=== PATIENT | female | born 1945 | race Hispanic/Latino ===

== ENCOUNTER 2017-07-14 14:07 | Inpatient (IN) | payer MEDICARE, BC ==
--- NOTE | 2017-07-14 14:23 | ED PDOC ---
Arrival/HPI - General Time Seen by Provider: 07/14/17 14:08 Historian: Patient - History of Present Illness Narrative History of Present Illness (Text): 07/14/17 14:16 A 72 year old female whose past medical history includes hypertension, presents to the emergency department for hypertension and chest pressure. The patient states that she was in the endoscopy suite when they noticed that her blood pressure had elevated. The patient was brought into the emergency department for further evaluation. She also notes that she is experiencing a mild headache. The patient denies fevers, chills, dizziness, sore throat, cough, shortness of breath, dyspnea on exertion, abdominal pain, nausea, vomiting, diarrhea, neck pain, back pain, urinary/bowel changes, or any other complaints. Time/Duration: Prior to Arrival Symptom Onset: Sudden Symptom Course: Unchanged Activities at Onset: Rest, Light Context: Other (Endoscopy Suite) Past Medical History - Provider Review Nursing Documentation Reviewed: Yes - Cardiac Hx Pacemaker: No - Pulmonary Hx Respiratory Disorders: Yes (SMOKED CIGARETTES H/O 2 PPD QUIT) - Neurological Hx Paralysis: No - HEENT Hx HEENT Disorder: No (WEARS RX GLASSES) - Renal Hx Renal Disorder: No - Endocrine/Metabolic Hx Endocrine Disorders: Yes Hx Hypothyroidism: Yes - Hematological/Oncological Hx Blood Transfusions: Yes Hx Blood Transfusion Reaction: No - Integumentary Hx Dermatological Disorder: Yes (MULTIPLE BRUISING FROM BLOOD THINNERS) - Musculoskeletal/Rheumatological Hx Musculoskeletal Disorders: Yes - Gastrointestinal Hx Gastrointestinal Disorders: Yes (GI BLEED 16) - Genitourinary/Gynecological Hx Genitourinary Disorders: No - Psychiatric Hx Emotional Abuse: No Hx Physical Abuse: No Hx Substance Use: No - Surgical History Hx Coronary Stent: Yes (2 stents) - Anesthesia Hx Anesthesia Reactions: No Hx Malignant Hyperthermia: No - Suicidal Assessment Feels Threatened In Home Enviroment: No Family/Social History - Physician Review Nursing Documentation Reviewed: Yes Family/Social History: No Known Family HX Smoking Status: Former Smoker Hx Alcohol Use: No Hx Substance Use: No Allergies/Home Meds Allergies/Adverse Reactions: Allergies acetaminophen [From Tylenol] Allergy (Intermediate, Verified 07/14/17 14:17) RASH Home Medications: Home Meds Medication Instructions Recorded Confirmed Levothyroxine Sodium 75 mcg PO DAILY 10/01/13 07/14/17 Metoprolol Tartrate [Lopressor] 100 mg PO DAILY 02/25/16 07/14/17 Losartan [Cozaar] 50 mg PO DAILY 03/31/17 07/14/17 Gabapentin [Neurontin] 300 mg PO TID 07/14/17 07/14/17 Zolpidem Tartrate [Ambien] 10 mg PO HS PRN 07/14/17 07/14/17 Review of Systems - Physician Review All systems were reviewed & negative as marked: Yes - Review of Systems Constitutional: absent: Fevers, Night Sweats Respiratory: absent: SOB, Cough Cardiovascular: absent: Chest Pain, MADRIGAL Gastrointestinal: absent: Abdominal Pain, Stool Changes, Diarrhea, Nausea, Vomiting Genitourinary Female: absent: Urine Output Changes Musculoskeletal: absent: Back Pain, Neck Pain Neurological: absent: Headache, Dizziness Physical Exam Vital Signs Reviewed: Yes Vital Signs Temp Pulse Pulse Resp BP BP Pulse Ox 07/14/17 17:32 72 189/96 H 07/14/17 17:17 72 17 189/96 H 98 07/14/17 16:10 79 16 181/98 H 98 07/14/17 14:20 73 196/90 H 07/14/17 14:12 97.6 F 80 14 97 Temperature: Afebrile Blood Pressure: Normal Pulse: Regular Respiratory Rate: Normal Appearance: Positive for: Well-Appearing, Non-Toxic, Comfortable Pain Distress: None Mental Status: Positive for: Alert and Oriented X 3 - Systems Exam Head: Present: Atraumatic, Normocephalic Pupils: Present: PERRL Extroacular Muscles: Present: EOMI Conjunctiva: Present: Normal Mouth: Present: Moist Mucous Membranes Neck: Present: Normal Range of Motion Respiratory/Chest: Present: Clear to Auscultation, Good Air Exchange. No: Respiratory Distress, Accessory Muscle Use Cardiovascular: Present: Regular Rate and Rhythm, Normal S1, S2. No: Murmurs Abdomen: Present: Normal Bowel Sounds. No: Tenderness, Distention, Peritoneal Signs Back: Present: Normal Inspection Upper Extremity: Present: Normal Inspection. No: Cyanosis, Edema Lower Extremity: Present: Normal Inspection. No: Edema Neurological: Present: GCS=15, CN II-XII Intact, Speech Normal Skin: Present: Warm, Dry, Normal Color. No: Rashes Psychiatric: Present: Alert, Oriented x 3, Normal Insight, Normal Concentration Medical Decision Making ED Course and Treatment: 07/14/17 14:23 Impression: A 72 year old female presents for further evaluation for high blood pressure, chest pressure, and headache. Plan: -- Head CT -- EKG -- Chest X-ray -- Labs -- Urinalysis -- Reassess and disposition Prior Visits: Notes and results from previous visits were reviewed. On 05/03/2017. She was treated for left knee pain. The patient was discharged home on Ultram. Progress Notes: EKG: Ordered, reviewed, and independently interpreted the EKG. Rate : 71 BPM Rhythm : NSR Interpretation : Non- specific ST/T wave changes. 07/14/17 16:09: Case discussed with Dr. Pablo. 07/14/17 17:[address] rapp bedside - Lab Interpretations Lab Results: 07/14/17 14:50 07/14/17 14:50 Lab Results 07/14/17 14:50: Sodium 144, Potassium 3.6, Chloride 102, Carbon Dioxide 32, Anion Gap 14, BUN 15, Creatinine 0.5 L, Est GFR ( Amer) > 60, Est GFR ( Non-Af Amer) > 60, Random Glucose 129 H, Calcium 8.9, Magnesium 1.6 L, Total Bilirubin 1.1, AST 55 H, ALT 62 H, Alkaline Phosphatase 59, Lactate Dehydrogenase 569, Total Creatine Kinase 99, Troponin I < 0.01 D, Total Protein 7.8, Albumin 3.9, Globulin 3.9, Albumin/Globulin Ratio 1.0 L 07/14/17 14:50: PT 11.2, INR 1.04, APTT 23.6 L 07/14/17 14:50: WBC 7.5, RBC 4.59, Hgb 14.4, Hct 43.2, MCV 94.1, MCH 31.4, MCHC 33.3, RDW 13.4, Plt Count 95 L, MPV 12.2 H, Gran % 83.9 H, Lymph % (Auto) 9.3 L , Hutchinson % (Auto) 6.8 H, Eos % (Auto) 0.0 L, Baso % (Auto) 0.0, Gran # 6.31, Lymph # 0.7 L, Hutchinson # 0.5, Eos # 0.0, Baso # 0.00 I have reviewed the lab results: Yes - RAD Interpretation Radiology Orders: 07/14/17 14:14 CHEST PORTABLE [RAD] Stat 07/14/17 14:29 HEAD W/O CONTRAST [CT] Stat - EKG Interpretation Interpreted by ED Physician: Yes Type: 12 lead EKG - Medication Orders Current Medication Orders: Gabapentin (Neurontin) 300 mg PO TID KARL PRN Reason: Protocol Hydralazine HCl (Apresoline) 10 mg IVP STAT KARL Last Admin: 07/14/17 17:32 Dose: 10 mg IVP Administration Document 07/14/17 17:32 MR (Rec: 07/14/17 17:32 [id number]) Charges for Administration # of IVP Administrations 1 DEC Pulse and Blood Pressure Document 07/14/17 17:32 MR (Rec: 07/14/17 17:32 MR [id number]) Pulse Pulse Rate (60-90) 72 Blood Pressure Blood Pressure (100/60-150/90) 189/96 Levothyroxine Sodium (Synthroid) 75 mcg PO ACB KARL Losartan Potassium (Cozaar) 50 mg PO DAILY K[facility] Magnesium Oxide (Mag-Ox) 400 mg PO BID K[facility] Metoprolol Tartrate (Lopressor) 50 mg PO BID K[facility] Pantoprazole Sodium (Protonix Ec Tab) 40 mg PO DAILY [facility] Sucralfate (Carafate Tab) 1 gm PO BID K[facility] Tramadol HCl (Ultram) 50 mg PO TID KAR[facility] Zolpidem Tartrate (Ambien) 5 mg PO HS PRN PRN Reason: Insomnia Discontinued Medications Aspirin (Aspirin) 325 mg PO STAT STA Stop: 07/14/17 16:11 Last Admin: 07/14/17 17:11 Dose: 325 mg - Scribe Statement The provider has reviewed the documentation as recorded by the Lizabeth Galvan Provider Scribe Attestation: All medical record entries made by the Lizabeth were at my direction and personally dictated by me. I have reviewed the chart and agree that the record accurately reflects my personal performance of the history, physical exam, medical decision making, and the department course for this patient. I have also personally directed, reviewed, and agree with the discharge instructions and disposition. Disposition/Present on Arrival - Present on Arrival Any Indicators Present on Arrival: No History of DVT/PE: No History of Uncontrolled Diabetes: No Urinary Catheter: No History Surgical Site Infection Following: None - Disposition Have Diagnosis and Disposition been Completed?: Yes Diagnosis: Chest pain Disposition: HOSPITALIZED Disposition Time: 05:00 Patient Problems: Current Active Problems Problem Status Onset Chest pain Acute Condition: STABLE
[2017-07-14 15:07] LABS: GRAN # 6.31 (1.4-6.5); GRAN % 83.9 % (50.0-68.0); HEMATOCRIT 43.2 % (36.0-48.0); LYMPH # 0.7 (1.2-3.4); LYMPH % 9.3 % (22.0-35.0); MEAN CELL VOLUME 94.1 fl (80.0-105.0); MEAN CORPUSCULAR HEMOGLOBIN 31.4 pg (25.0-35.0); MEAN CORPUSCULAR HGB CONC 33.3 g/dl (31.0-37.0); MEAN PLATELET VOLUME 12.2 fl (7.0-11.0); MONO # 0.5 (0.1-0.6); MONO % 6.8 % (1.0-6.0); RED CELL DISTRIBUTION WIDTH 13.4 % (11.5-14.5); WHITE BLOOD COUNT 7.5 10^3/ul (4.5-11.0)
[2017-07-14 15:13] LABS: ALKALINE PHOSPHATASE 59 U/L (38-126); ALT/SGPT 62 U/L (7-56); AST/SGOT 55 U/L (14-36); BILIRUBIN,TOTAL 1.1 mg/dL (0.2-1.3); BLOOD UREA NITROGEN 15 mg/dL (7-21); CALCIUM 8.9 mg/dL (8.4-10.5); CARBON DIOXIDE 32 mmol/L (21-33); CHLORIDE 102 mmol/L (98-107); GFR AFRICAN-AMERICAN > 60; GLUCOSE,RANDOM 129 mg/dL (70-110); MAGNESIUM 1.6 mg/dL (1.7-2.2); POTASSIUM 3.6 mmol/L (3.6-5.0); SODIUM 144 mmol/L (132-148); TOTAL PROTEIN 7.8 g/dL (5.8-8.3)
[2017-07-14 15:14] LABS: INR 1.04 (0.93-1.08); PARTIAL THROMBOPLASTIN TIME 23.6 Seconds (23.7-30.8)
[2017-07-14 15:28] LABS: TROPONIN I < 0.01 ng/mL
[2017-07-14] MEDS: Magnesium Oxide 400 mg Tab UD PO SCH (18:45)
--- NOTE | 2017-07-14 18:57 | CP.PCM.PN ---
<SairaNancy - Last Filed: 07/14/17 19:17> Subjective - Date & Time of Evaluation Date of Evaluation: 07/14/17 Time of Evaluation: 18:52 - Subjective Subjective: Paged by nurse, patient c/o left sided chest pain. Patient initially presented to [place] for endoscopy, was found to be hypertensive, and had episode of left sided chest pressure. TEXTILE DESIGNER was called, patient was transferred to the ER, had ekg with NSR, LVH, and non specific ST/T wave changes. Patient is currently admitted to [facility], and states the chest pain is persistent. The chest pain is reproducible and non radiating. Patient states it feels like her "acid reflux". Patient denies sob, nausea or vomiting. Patient appears comfortable, and is eating her dinner. Objective - Vital Signs/Intake and Output Vital Signs (last 24 hours): Temp Pulse Resp BP Pulse Ox 97.6 F 76 17 189/85 H 98 07/14/17 14:12 07/14/17 18:44 07/14/17 17:17 07/14/17 18:44 07/14/17 17:17 - Medications Medications: Current Medications Gabapentin (Neurontin) 300 mg PO TID [facility] PRN Reason: Protocol Last Admin: 07/14/17 18:43 Dose: 300 mg Hydralazine HCl (Apresoline) 10 mg IVP STAT [facility] Last Admin: 07/14/17 17:32 Dose: 10 mg Hydralazine HCl (Apresoline) 10 mg PO QID PRN PRN Reason: for sb>170 Levothyroxine Sodium (Synthroid) 75 mcg PO ACB [facility] Losartan Potassium (Cozaar) 100 mg PO DAILY [facility] Magnesium Oxide (Mag-Ox) 400 mg PO BID [facility] Last Admin: 07/14/17 18:45 Dose: 400 mg Metoprolol Tartrate (Lopressor) 50 mg PO BID [facility] Last Admin: 07/14/17 18:44 Dose: 50 mg Pantoprazole Sodium (Protonix Ec Tab) 40 mg PO DAILY [facility] Sucralfate (Carafate Tab) 1 gm PO BID [facility] Last Admin: 07/14/17 18:45 Dose: 1 gm Tramadol HCl (Ultram) 50 mg PO TID [facility] Last Admin: 07/14/17 18:45 Dose: 50 mg Zolpidem Tartrate (Ambien) 5 mg PO HS PRN PRN Reason: Insomnia - Labs Labs: PT 11.2 Seconds (9.9-11.8) 07/14/17 14:50 INR 1.04 (0.93-1.08) 07/14/17 14:50 APTT 23.6 Seconds (23.7-30.8) L 07/14/17 14:50 - Constitutional Appears: No Acute Distress - Head Exam Head Exam: ATRAUMATIC, NORMAL INSPECTION, NORMOCEPHALIC - Eye Exam Eye Exam: Normal appearance - ENT Exam ENT Exam: Mucous Membranes Moist - Neck Exam Neck Exam: Normal Inspection - Respiratory Exam Respiratory Exam: Clear to Ausculation Bilateral, NORMAL BREATHING PATTERN. absent: Rales, Rhonchi, Wheezes, Respiratory Distress, Stridor - Cardiovascular Exam Cardiovascular Exam: REGULAR RHYTHM, +S1, +S2. absent: Bradycardia, Tachycardia , Irregular Rhythm, Murmur - GI/Abdominal Exam GI & Abdominal Exam: Soft, Normal Bowel Sounds. absent: Tenderness - Neurological Exam Neurological Exam: Alert, Awake, Oriented x3 - Psychiatric Exam Psychiatric exam: Normal Affect, Normal Mood - Skin Skin Exam: Dry, Intact, Warm Assessment and Plan - Assessment and Plan (Free Text) Assessment: Patient is a 72 y/o with pmh of CAD s/p 2 stents, htn admitted with htn urgency and chest pain. Patient had a repeat ekg, which is NSR@71 BPM, non specific ST/ T wave changes, LVH, unchanged from prior EKG. Plan: - Labs reviewed, patient had normal troponin and cpk @1450, and ekg is unchanged , no ST/T wave elevations. - Patient had ultram ordered by primary, will give the ultram for now. - Discussed with patient's primary Dr Burgos, recommended Product Test Specialist, Dr Fuller be contacted. - Paged Dr Fuller's service, awaiting response. - Discuss with Dr Casey. <Effie Casey - Last Filed: 07/14/17 21:17> Objective - Vital Signs/Intake and Output Vital Signs (last 24 hours): Temp Pulse Resp BP Pulse Ox 98.4 F 62 20 181/77 H 98 07/14/17 19:00 07/14/17 20:49 07/14/17 19:00 07/14/17 20:49 07/14/17 17:17 - Medications Medications: Current Medications Gabapentin (Neurontin) 300 mg PO TID KARL PRN Reason: Protocol Last Admin: 07/14/17 18:43 Dose: 300 mg Hydralazine HCl (Apresoline) 10 mg IVP STAT [facility] Last Admin: 07/14/17 17:32 Dose: 10 mg Hydralazine HCl (Apresoline) 10 mg PO QID PRN PRN Reason: for sb>170 Last Admin: 07/14/17 20:49 Dose: 10 mg Levothyroxine Sodium (Synthroid) 75 mcg PO ACB KARL Losartan Potassium (Cozaar) 100 mg PO DAILY [facility] Magnesium Oxide (Mag-Ox) 400 mg PO BID [facility] Last Admin: 07/14/17 18:45 Dose: 400 mg Metoprolol Tartrate (Lopressor) 50 mg PO BID [facility] Last Admin: 07/14/17 18:44 Dose: 50 mg Pantoprazole Sodium (Protonix Ec Tab) 40 mg PO DAILY [facility] Sucralfate (Carafate Tab) 1 gm PO BID [facility] Last Admin: 07/14/17 18:45 Dose: 1 gm Tramadol HCl (Ultram) 50 mg PO TID [facility] Last Admin: 07/14/17 18:45 Dose: 50 mg Zolpidem Tartrate (Ambien) 5 mg PO HS PRN PRN Reason: Insomnia - Labs Labs: PT 11.2 Seconds (9.9-11.8) 07/14/17 14:50 INR 1.04 (0.93-1.08) 07/14/17 14:50 APTT 23.6 Seconds (23.7-30.8) L 07/14/17 14:50 Attending/Attestation - Attestation I have personally seen and examined this patient.: Yes I have fully participated in the care of the patient.: Yes I have reviewed all pertinent clinical information, including history, physical exam and plan: Yes Notes (Text): 07/14/17 21:17 Agree with progress note.
[2017-07-14 19:12] VITALS: BMI 26.0
[2017-07-14] MEDS ORDERED: Pneumococcal 23-Valent Vaccine IM ONE (19:13)
--- NOTE | 2017-07-14 20:01 | RAD ---
HISTORY: cp COMPARISON: 01/11/2016 FINDINGS: LUNGS: No active pulmonary disease. PLEURA: No significant pleural effusion identified, no pneumothorax apparent. CARDIOVASCULAR: Normal. OSSEOUS STRUCTURES: No significant abnormalities. VISUALIZED UPPER ABDOMEN: Normal. OTHER FINDINGS: None. IMPRESSION: No active disease.
--- NOTE | 2017-07-14 20:01 | CT ---
PROCEDURE: CT HEAD WITHOUT CONTRAST. HISTORY: maosn COMPARISON: None available. TECHNIQUE: Axial computed tomography images were obtained through the head/brain without intravenous contrast. Radiation dose: Total exam DLP = 678 mGy-cm. This CT exam was performed using one or more of the following dose reduction techniques: Automated exposure control, adjustment of the mA and/or kV according to patient size, and/or use of iterative reconstruction technique. FINDINGS: HEMORRHAGE: No intracranial hemorrhage. BRAIN: No mass effect or edema. No atrophy or chronic microvascular ischemic changes. VENTRICLES: Unremarkable. No hydrocephalus. CALVARIUM: Unremarkable. PARANASAL SINUSES: Unremarkable as visualized. No significant inflammatory changes. MASTOID AIR CELLS: Unremarkable as visualized. No inflammatory changes. OTHER FINDINGS: None. IMPRESSION: No acute findings
[2017-07-14 21:13] LABS: TROPONIN I 0.02 ng/mL
--- NOTE | 2017-07-14 22:03 | CARD ---
APPROVED REPORT EKG Measurement Heart [id number] <Conclusion> Normal sinus rhythm Voltage criteria for left ventricular hypertrophy ST abnormality, possible digitalis effect Abnormal ECG
--- NOTE | 2017-07-15 05:30 | CON ---
DATE: 07/14/2017 REASON FOR THE CONSULTATION: Chest pain and uncontrolled hypertension. BRIEF CLINICAL HISTORY: This is a 72-year-old female with past medical history significant for hypertension, gastroesophageal reflux disease, and is scheduled for endoscopy today. While the patient was in endoscopy suite, blood pressure was found to be 220. The patient is in the ER. The patient at that time experienced some chest discomfort. Cardiac consult was called. The patient denies any episode of chest pain prior to that or shortness of breath prior to that but the patient experienced some shortness of breath as well as blood pressure of the patient went 220. At that time, the blood pressure was 238/106. PAST MEDICAL HISTORY: Significant for hypertension, hyperlipidemia, history of coronary artery disease status post PTCA and history of PTCA on 10/01/2013. Last catheterization, the patient admitted with chest pain, abnormal stress test. Repeat catheterization on 07/03/2014 showed a nonobstructive coronary artery disease, patent stent in RCA, proximal stent in RCA, 50% stenosis in the mid to distal RCA, ejection fraction 18 to 20%. Medical treatment recommended. SOCIAL HISTORY: Denies smoking. Denies any history of alcohol abuse. Cardiology workup as follows: The patient had an echocardiography on 02/27/2016 showed normal chamber size, ejection fraction 55%, mild MR, mild AR, trace TR; dated ; history of last stress test on 06/19/2014, overly abnormal myocardial perfusion study, ejection fraction 76%, reversible ischemia. The patient had a last catheterization done on 10/01/2013 that was one vessel critical disease involving RCA, successful PTCA of RCA was done mild and a stent with CAMELIA was deployed on 10/01/2013. Repeat cardiac catheterization was done because of abnormal stress test in 07/02/2017 that showed nonobstructive coronary artery disease, patent stent in RCA dated 07/02/2017 following the stress test done on 06/19/2014. The cardiac catheter was done dated 07/02/2014. ALLERGIES: NO KNOWN DRUG ALLERGIES. PAST SURGICAL HISTORY: Significant for right shoulder surgery and fell down and since then the patient having leg pain. CURRENT MEDICATIONS: The patient at home was taking metoprolol 100 mg, tramadol 50, sucralfate 1 gm, losartan 50, levothyroxine, gabapentin and Ambien. REVIEW OF SYSTEMS: As per HPI. PHYSICAL EXAMINATION: As follows: VITAL SIGNS: Temperature afebrile, heart rate 72 and blood pressure 189/96. HEENT: PERRLA intact. NECK: Supple. No carotid bruit. No thyromegaly. CHEST: Clear to auscultation. HEART: S1 and S2 regular. ABDOMEN: Soft. EXTREMITIES: Clubbing and cyanosis negative. LABORATORY DATA: Blood workup as follows; WBC is 7.5, hemoglobin 14.2, hematocrit 43.2 and platelet count 95. Chemistry shows sodium 140, potassium 3.0, chloride 102, carbon dioxide 32, anion gap of 14, BUN 15 and creatinine 0.5. Troponin 0.01 negative. EKG shows normal sinus, no acute ST-T changes noted. IMPRESSION: Uncontrolled hypertension, probably this chest pain secondary to uncontrolled hypertension, history of stent in 2012, followup stress test abnormal in 2013, repeat cardiac catheterization on 07/02/2014, patent stent. RECOMMENDATION: We will get lipid profile, TSH, hemoglobin A1c. Followup serial CPK, troponin. CPK, troponin remains negative. We will do the stress test on Monday. Thank you Dr. Burgos for providing me the opportunity in taking care of the patient, Sakina Mckeon. Christy Fuller MD
[2017-07-15 07:38] LABS: BASO # 0.01 K/mm3 (0.0-2.0); BASO % 0.2 % (0.0-3.0); EOS % 0.2 % (1.5-5.0); GRAN # 3.04 (1.4-6.5); GRAN % 65.5 % (50.0-68.0); HEMATOCRIT 43.6 % (36.0-48.0); LYMPH # 1.2 (1.2-3.4); MEAN CELL VOLUME 96.2 fl (80.0-105.0); MEAN CORPUSCULAR HEMOGLOBIN 31.3 pg (25.0-35.0); MEAN CORPUSCULAR HGB CONC 32.6 g/dl (31.0-37.0); MEAN PLATELET VOLUME 12.5 fl (7.0-11.0); MONO # 0.4 (0.1-0.6); MONO % 9.1 % (1.0-6.0); RED CELL DISTRIBUTION WIDTH 13.8 % (11.5-14.5); WHITE BLOOD COUNT 4.6 10^3/ul (4.5-11.0)
[2017-07-15 07:50] LABS: ALKALINE PHOSPHATASE 49 U/L (38-126); ALT/SGPT 57 U/L (7-56); AST/SGOT 50 U/L (14-36); BLOOD UREA NITROGEN 14 mg/dL (7-21); CALCIUM 8.9 mg/dL (8.4-10.5); CARBON DIOXIDE 39 mmol/L (21-33); CHLORIDE 100 mmol/L (98-107); CHOLESTEROL 149 mg/dL (130-200); GFR AFRICAN-AMERICAN > 60; GLUCOSE,RANDOM 88 mg/dL (70-110); MAGNESIUM 1.8 mg/dL (1.7-2.2); PHOSPHOROUS 4.2 mg/dL (2.5-4.5); POTASSIUM 4.6 mmol/L (3.6-5.0); SODIUM 145 mmol/L (132-148)
[2017-07-15] MEDS: Levothyroxine 75 MCG TAB PO SCH (08:00)
[2017-07-15 08:01] LABS: TROPONIN I 0.03 ng/mL
--- NOTE | 2017-07-15 08:49 | PN ---
DATE: SUBJECTIVE: The patient is in [facility] in [place]. The patient is seen this morning. She was admitted last night with accelerated hypertension, chest pain, and headache. The patient is seen this morning, she still complains of discomfort in the chest, pain in the head, and feeling restless. She did not sleep all night. She is comfortably lying down without any shortness of breath. PHYSICAL EXAMINATION: VITAL SIGNS: The patient's pulse is 59, respirations are 20, blood pressure 163/76 much improved compared to yesterday's numbers. The patient's saturations is 99% of oxygen in room air. HEENT: Examination of the head is normocephalic. There is no evidence of any injuries in the head noted. NECK: The thyroid is not enlarged. Carotid pulses are present. LUNGS: Trachea is central. Breath sounds are vesicular. No adventitious sounds are heard. HEART: Normal sinus rhythm. S1 and S2 present. Sinus bradycardia. ABDOMEN: Soft. Liver and spleen are not palpable. CENTRAL NERVOUS SYSTEM: The patient has no focal deficits. Labs, she has had a CAT scan done through the emergency room yesterday without any results of negative findings. The patient's condition seemed to be clinically stable. The patient is not comfortable and still has symptoms. Cardiac evaluation would be done today on followup by Dr. Fuller. We will have the neurologist also take a look at the patient while she is in the hospital because of the headache. Today, the patient's hemoglobin is 14.2. The patient's platelet count is 88,000. She does have history of chronic liver disease from hepatitis C. The patient's chemistry are essentially normal, liver enzymes are minimally elevated secondary to hepatitis C. The patient's BUN is 14 and creatinine 8.5. We will continue current management and control medications for blood pressure and for also coronary artery disease. The patient will be seen by the customs brokerage manager and we will continue further management and evaluation. Brigitte Burgos MD ARMANDO
[2017-07-15] MEDS ORDERED: Levothyroxine 88 MCG TAB PO SCH (10:00)
[2017-07-15] MEDS: Magnesium Oxide 400 mg Tab UD PO SCH ×2 (10:09→17:52)
[2017-07-15] MEDS: Pantoprazole 40 mg EC Tab PO SCH (10:10)
--- NOTE | 2017-07-15 15:23 | PN ---
SUBJECTIVE: The patient denies any chest pain. She does report gas discomfort in her abdomen as well as constipation. PHYSICAL EXAMINATION: VITAL SIGNS: Blood pressure 184/97, heart rate 66, temperature 98.1, respirations 18. HEENT: Normocephalic. NECK: No JVD. CHEST: Clear. HEART: S1 and S2 regular. EXTREMITIES: No edema. LABORATORY DATA: Hemoglobin and hematocrit 14.2 and 43.6, white count 4.6, platelet count is below normal at 88,000. SMA-7 is within normal limits except for a carbon dioxide of 39 and creatinine of 0.5. Three sets of troponins are not in elevated range. TSH level is within normal limit. Today's EKG revealed sinus rhythm, LVH by voltage. ASSESSMENT: 1. Uncontrolled hypertension. 2. History of coronary stenting in 2012. 3. Abdominal discomfort as well as constipation. RECOMMENDATIONS: Continue Cozaar 100 mg once a day, Lopressor 50 mg twice a day, continue Fioricet at 1 tablet q. 4 hours p.r.n., Synthroid at 75 mcg once a day, start hydrochlorothiazide at 12.5 mg orally daily. Taran Godoy MD
[2017-07-15] MEDS ORDERED: Magnesium Citrate Oral SOL (300 ml) PO ONE (17:07)
[2017-07-15] MEDS: Apap-Butalbital-Caffeine 325-50-40mg Tab PO PRN (17:55)
--- NOTE | 2017-07-15 22:58 | CARD ---
APPROVED REPORT EKG Measurement Heart [id number] <Conclusion> Normal sinus rhythm Minimal voltage criteria for LVH, may be normal variant Nonspecific T wave abnormality Abnormal ECG
--- NOTE | 2017-07-15 23:10 | CARD ---
APPROVED REPORT EKG Measurement Heart [id number] <Conclusion> Normal sinus rhythm Minimal voltage criteria for LVH, may be normal variant Nonspecific T wave abnormality Abnormal ECG
[2017-07-16] MEDS: Levothyroxine 75 MCG TAB PO SCH (08:40)
[2017-07-16] MEDS: Pantoprazole 40 mg EC Tab PO SCH (10:36)
[2017-07-16] MEDS: Magnesium Oxide 400 mg Tab UD PO SCH ×2 (10:36→17:47)
--- NOTE | 2017-07-16 15:43 | PN ---
SUBJECTIVE: The patient did vomit once this morning, and she did have a bowel movement. She started experiencing what she describes as gas abdominal pain. No resistant chest pain. PHYSICAL EXAMINATION: VITAL SIGNS: Blood pressure 168/77, heart rate 99, temperature 97.3. An EKG yesterday revealed normal sinus rhythm, minimal voltage criteria for LVH with nonspecific T-wave changes. ASSESSMENT: 1. Hypertension, which is currently better controlled. 2. Abdominal pain and vomiting. 3. History of coronary artery disease, status post stenting in 2012. RECOMMENDATIONS: Continue current hydralazine 10 mg q.i.d., Cozaar 100 mg once a day, Lopressor 50 mg twice a day, hydrochlorothiazide 12.5 mg daily, Synthroid at 75 mcg daily as well as p.r.n. IV Zofran. I would review the echocardiograph study that was performed yesterday. Taran Godoy MD
--- NOTE | 2017-07-16 17:06 | CON ---
DATE: 07/16/2017 HISTORY OF PRESENT ILLNESS: This patient was seen and evaluated earlier. This is a 72-year-old patient with a past medical history of cirrhosis secondary to the hep C; coronary artery disease, status post EPIC CUPID ANALYST, initially presented to the endoscopy unit on 07/14/2017 for endoscopy evaluation. At that time, her pressure was found to have been high. The patient also was complaining of chest pain, the procedure was canceled; subsequently, the patient was sent to the emergency room and admitted for further evaluation. The patient has a history of gastric ulcer. The endoscopy was scheduled for evaluating the gastric ulcer. The patient also gave a history of significant weight loss. OTHER PAST MEDICAL HISTORY: Significant as above. History of chronic hepatitis C, cirrhosis, history of hypertension, dyslipidemia, status post PCI, stent placement. The patient has a history of hypothyroidism and neuropathy. SOCIAL HISTORY: Denies smoking, alcohol. ALLERGIES: NO KNOWN DRUG ALLERGY. SURGICAL HISTORY: Significant for right shoulder surgery. REVIEW OF SYSTEMS: Positive as above, other systems reviewed. PHYSICAL EXAMINATION: GENERAL: The patient is lying on the bed, not in acute distress. VITAL SIGNS: Temperature is 97.3, pulse 99, blood pressure 168/77, respirations 20. HEENT: Atraumatic, anicteric. NECK: Supple. HEART: S1 and S2 heard. LUNGS: Bilateral air entry present. ABDOMEN: Soft. There is no mass palpable. No tenderness. EXTREMITIES: No edema. No cyanosis. NEUROLOGIC: Alert, oriented. RECTAL: Examination was done, we saw some pink mucousy stool present. IMPRESSION: This is a 72-year-old patient, initially presented to the same-day surgery unit for evaluation for gastric ulcer healing, history of weight loss, subsequently found to have a high blood pressure and atypical chest pain. Subsequently, transferred to the ER; from there, he was admitted for further evaluation. The patient did have further constipation, had suppositories, had a bowel movement; had some blood in the stool. GI consult was requested to evaluate the rectal bleeding. No history of vomiting blood. No melena. Rectal examination revealed pink mucousy stool. The differential diagnosis for this bright red blood should include hemorrhoids, diverticulosis and also, rectal varices also to be considered. Upper GI etiology also to be considered, but less likely in view of the stable hemoglobin. Review of the labs showed the hemoglobin is stable at 14.4 yesterday and today is 14.2, stable. The patient's chemistry is also unremarkable except mildly elevated transaminase, AST of 50 and ALT of 57. RECOMMENDATIONS: 1. We will change the patient on clear liquid diet. 2. Continue to closely follow up her hemoglobin and hematocrit. 3. If there is any active bleeding, we will consider a bleeding scan. The patient is presently on pantoprazole, we will continue that and also, on sucralfate twice a day, we will continue that. Thank you very much for allowing us to participate in the care of the patient. Rebecca Woodard MD
--- NOTE | 2017-07-17 06:02 | CP.PCM.PN ---
Subjective - Date & Time of Evaluation Date of Evaluation: 07/17/17 Time of Evaluation: 06:02 - Subjective Subjective: Seen for short run of SVT. She is Asymptomatic. Denies chest pain, sob, nausea, sweating, palpitations. Medical record was reviewed.\ EKG:S tach. No acute ST T changes. This 72 year old woman was admitted from endoscopy for elevation of BP, discomfort of left side of forehead and flushing of left side of face. Has PMH of HTN,hypothyroidism, osteoarthritis, neuromuscular pain, hepatitis C , gastritis , GERD, actute LA, GI bleeding, CAD. Objective - Vital Signs/Intake and Output Vital Signs (last 24 hours): Temp Pulse Resp BP Pulse Ox 98.4 F 104 H 20 112/59 L 94 L 07/17/17 05:21 07/17/17 05:21 07/17/17 05:21 07/17/17 05:21 07/17/17 05:21 Intake and Output: 07/16/17 07/17/17 18:59 06:59 Intake Total 360 Balance 360 - Medications Medications: Current Medications Acetaminophen/Butalbital/Caffeine (Fioricet) 1 tab PO Q4H PRN PRN Reason: Headache Last Admin: 07/15/17 17:55 Dose: 1 tab Gabapentin (Neurontin) 300 mg PO TID [facility] PRN Reason: Protocol Last Admin: 07/16/17 17:47 Dose: 300 mg Hydralazine HCl (Apresoline) 10 mg PO QID PRN PRN Reason: for sb>170 Last Admin: 07/15/17 22:05 Dose: 10 mg Hydrochlorothiazide (Microzide) 12.5 mg PO DAILY [facility] Last Admin: 07/16/17 10:36 Dose: 12.5 mg Levothyroxine Sodium (Synthroid) 75 mcg PO ACB [facility] Last Admin: 07/16/17 08:40 Dose: 75 mcg Losartan Potassium (Cozaar) 100 mg PO DAILY [facility] Last Admin: 07/16/17 10:36 Dose: 100 mg Magnesium Oxide (Mag-Ox) 400 mg PO BID [facility] Last Admin: 07/16/17 17:47 Dose: 400 mg Metoprolol Tartrate (Lopressor) 50 mg PO BID [facility] Last Admin: 07/16/17 17:45 Dose: 50 mg Ondansetron HCl (Zofran Inj) 4 mg IVP Q4H PRN PRN Reason: Nausea/Vomiting Last Admin: 07/16/17 19:04 Dose: 4 mg Pantoprazole Sodium (Protonix Ec Tab) 40 mg PO DAILY [facility] Last Admin: 07/16/17 10:36 Dose: 40 mg Sucralfate (Carafate Tab) 1 gm PO BID [facility] Last Admin: 07/16/17 17:45 Dose: 1 gm Tramadol HCl (Ultram) 50 mg PO TID [facility] Last Admin: 07/16/17 17:48 Dose: 50 mg Zolpidem Tartrate (Ambien) 5 mg PO HS PRN PRN Reason: Insomnia Last Admin: 07/16/17 22:55 Dose: 5 mg - Labs Labs: PT 11.2 Seconds (9.9-11.8) 07/14/17 14:50 INR 1.04 (0.93-1.08) 07/14/17 14:50 APTT 23.6 Seconds (23.7-30.8) L 07/14/17 14:50 - Constitutional Appears: Well, No Acute Distress - Head Exam Head Exam: ATRAUMATIC, NORMAL INSPECTION, NORMOCEPHALIC - Eye Exam Eye Exam: Normal appearance - ENT Exam ENT Exam: Normal External Ear Exam - Neck Exam Neck Exam: Normal Inspection - Respiratory Exam Respiratory Exam: Prolonged Expiratory Phase - Cardiovascular Exam Cardiovascular Exam: absent: JVD - GI/Abdominal Exam GI & Abdominal Exam: absent: Distended - Rectal Exam Rectal Exam: Deferred - Exam Additional comments: Deferred. - Back Exam Additional comments: Deferred. - Neurological Exam Neurological Exam: Alert, Oriented x3 - Psychiatric Exam Psychiatric exam: Normal Affect, Normal Mood - Skin Skin Exam: Normal Color Assessment and Plan - Assessment and Plan (Free Text) Assessment: SVT. HTN. CAD. Osteoarthritis. Hypothyroidism. GERD. Gastritis. Plan: Troponin. CMP,Mag,Phos levels. EKG---->Sinus tachycardia, no acute ST T changes present. Continue present management . Observation.
[2017-07-17 06:52] LABS: BASO # 0.01 K/mm3 (0.0-2.0); BASO % 0.2 % (0.0-3.0); EOS % 0.6 % (1.5-5.0); GRAN # 3.19 (1.4-6.5); GRAN % 64.6 % (50.0-68.0); HEMATOCRIT 44.8 % (36.0-48.0); LYMPH # 1.1 (1.2-3.4); LYMPH % 23.1 % (22.0-35.0); MEAN CELL VOLUME 95.1 fl (80.0-105.0); MEAN CORPUSCULAR HEMOGLOBIN 31.4 pg (25.0-35.0); MEAN PLATELET VOLUME 11.3 fl (7.0-11.0); MONO # 0.6 (0.1-0.6); MONO % 11.5 % (1.0-6.0); RED CELL DISTRIBUTION WIDTH 13.5 % (11.5-14.5); WHITE BLOOD COUNT 4.9 10^3/ul (4.5-11.0)
[2017-07-17 07:01] LABS: BLOOD UREA NITROGEN 15 mg/dL (7-21); CALCIUM 8.3 mg/dL (8.4-10.5); CARBON DIOXIDE 38 mmol/L (21-33); CHLORIDE 94 mmol/L (98-107); GFR AFRICAN-AMERICAN > 60; GLUCOSE,RANDOM 88 mg/dL (70-110); POTASSIUM 3.8 mmol/L (3.6-5.0); SODIUM 139 mmol/L (132-148)
[2017-07-17 07:48] LABS: MAGNESIUM 1.9 mg/dL (1.7-2.2); PHOSPHOROUS 5.1 mg/dL (2.5-4.5)
[2017-07-17] MEDS: Levothyroxine 75 MCG TAB PO SCH (07:57)
--- NOTE | 2017-07-17 08:00 | CP.PCM.PN ---
Subjective - Date & Time of Evaluation Date of Evaluation: 07/16/17 Time of Evaluation: 08:05 - Subjective Subjective: Patient seen this morning. She is complaining of constipation. She had citrate of magnesia yesterday and was trying to go to the bathroom today, but says that nothing comes out. c/o bleeding from rectum. Objective - Vital Signs/Intake and Output Vital Signs (last 24 hours): Temp Pulse Resp BP Pulse Ox 98.2 F 64 18 168/67 H 97 07/16/17 06:00 07/16/17 06:00 07/16/17 06:00 07/16/17 06:00 07/16/17 06:00 Intake and Output: 07/16/17 07/16/17 06:59 18:59 Intake Total 660 Output Total 6 Balance 654 - Medications Medications: Current Medications Acetaminophen/Butalbital/Caffeine (Fioricet) 1 tab PO Q4H PRN PRN Reason: Headache Last Admin: 07/15/17 17:55 Dose: 1 tab Gabapentin (Neurontin) 300 mg PO TID [facility] PRN Reason: Protocol Last Admin: 07/15/17 17:46 Dose: Not Given Hydralazine HCl (Apresoline) 10 mg PO QID PRN PRN Reason: for sb>170 Last Admin: 07/15/17 22:05 Dose: 10 mg Hydrochlorothiazide (Microzide) 12.5 mg PO DAILY [facility] Last Admin: 07/15/17 16:04 Dose: 12.5 mg Levothyroxine Sodium (Synthroid) 75 mcg PO ACB [facility] Last Admin: 07/15/17 08:00 Dose: 75 mcg Losartan Potassium (Cozaar) 100 mg PO DAILY [facility] Last Admin: 07/15/17 10:10 Dose: 100 mg Magnesium Oxide (Mag-Ox) 400 mg PO BID [facility] Last Admin: 07/15/17 17:52 Dose: 400 mg Metoprolol Tartrate (Lopressor) 50 mg PO BID [facility] Last Admin: 07/15/17 17:52 Dose: 50 mg Pantoprazole Sodium (Protonix Ec Tab) 40 mg PO DAILY [facility] Last Admin: 07/15/17 10:10 Dose: 40 mg Sucralfate (Carafate Tab) 1 gm PO BID [facility] Last Admin: 07/15/17 17:52 Dose: 1 gm Tramadol HCl (Ultram) 50 mg PO TID [facility] Last Admin: 07/15/17 17:51 Dose: Not Given Zolpidem Tartrate (Ambien) 5 mg PO HS PRN PRN Reason: Insomnia Last Admin: 07/15/17 22:05 Dose: 5 mg - Labs Labs: PT 11.2 Seconds (9.9-11.8) 07/14/17 14:50 INR 1.04 (0.93-1.08) 07/14/17 14:50 APTT 23.6 Seconds (23.7-30.8) L 07/14/17 14:50 - Constitutional Appears: No Acute Distress - Head Exam Head Exam: ATRAUMATIC, NORMOCEPHALIC - Respiratory Exam Respiratory Exam: Clear to Ausculation Bilateral, NORMAL BREATHING PATTERN - Cardiovascular Exam Cardiovascular Exam: +S1, +S2 - GI/Abdominal Exam GI & Abdominal Exam: Soft, Normal Bowel Sounds. absent: Tenderness - Extremities Exam Extremities Exam: Normal Inspection - Neurological Exam Neurological Exam: Alert, Awake, Oriented x3 Assessment and Plan - Assessment and Plan (Free Text) Assessment: Uncontrolled HTN chest pain Constipation possible rectal bleeding Hepatitis C Plan: Patient is complaining of constipation and possible rectal bleeding - maybe due to hemmorhoids. Will consult Dr. Woodard. Will order dulcolax suppository and tap water enema. continue Metoprolol, and Cozaar for blood pressure with Hydralazine as needed. Echocardiogram done yesterday. Report pending.
--- NOTE | 2017-07-17 08:07 | CP.PCM.PN ---
Subjective - Date & Time of Evaluation Date of Evaluation: 07/17/17 Time of Evaluation: 07:45 - Subjective Subjective: Patient is seen this morning. She had a short run of SVT early this morning. She says that she feels chest pressure from time to time. Denies shortness of breath. Objective - Vital Signs/Intake and Output Vital Signs (last 24 hours): Temp Pulse Resp BP Pulse Ox 98.1 F 98 H 19 118/65 96 07/17/17 06:00 07/17/17 06:00 07/17/17 06:00 07/17/17 06:00 07/17/17 06:00 Intake and Output: 07/17/17 07/17/17 06:59 18:59 Intake Total 300 Output Total 3 Balance 297 - Medications Medications: Current Medications Acetaminophen/Butalbital/Caffeine (Fioricet) 1 tab PO Q4H PRN PRN Reason: Headache Last Admin: 07/15/17 17:55 Dose: 1 tab Gabapentin (Neurontin) 300 mg PO TID [facility] PRN Reason: Protocol Last Admin: 07/16/17 17:47 Dose: 300 mg Hydralazine HCl (Apresoline) 10 mg PO QID PRN PRN Reason: for sb>170 Last Admin: 07/15/17 22:05 Dose: 10 mg Hydrochlorothiazide (Microzide) 12.5 mg PO DAILY [facility] Last Admin: 07/16/17 10:36 Dose: 12.5 mg Levothyroxine Sodium (Synthroid) 75 mcg PO ACB [facility] Last Admin: 07/17/17 07:57 Dose: 75 mcg Losartan Potassium (Cozaar) 100 mg PO DAILY [facility] Last Admin: 07/16/17 10:36 Dose: 100 mg Magnesium Oxide (Mag-Ox) 400 mg PO BID [facility] Last Admin: 07/16/17 17:47 Dose: 400 mg Metoprolol Tartrate (Lopressor) 50 mg PO BID [facility] Last Admin: 07/16/17 17:45 Dose: 50 mg Ondansetron HCl (Zofran Inj) 4 mg IVP Q4H PRN PRN Reason: Nausea/Vomiting Last Admin: 07/16/17 19:04 Dose: 4 mg Pantoprazole Sodium (Protonix Ec Tab) 40 mg PO DAILY [facility] Last Admin: 07/16/17 10:36 Dose: 40 mg Sucralfate (Carafate Tab) 1 gm PO BID [facility] Last Admin: 07/16/17 17:45 Dose: 1 gm Tramadol HCl (Ultram) 50 mg PO TID [facility] Last Admin: 07/16/17 17:48 Dose: 50 mg Zolpidem Tartrate (Ambien) 5 mg PO HS PRN PRN Reason: Insomnia Last Admin: 07/16/17 22:55 Dose: 5 mg - Labs Labs: 07/17/17 06:00 07/17/17 06:00 PT 11.2 Seconds (9.9-11.8) 07/14/17 14:50 INR 1.04 (0.93-1.08) 07/14/17 14:50 APTT 23.6 Seconds (23.7-30.8) L 07/14/17 14:50 - Constitutional Appears: No Acute Distress - Head Exam Head Exam: ATRAUMATIC, NORMOCEPHALIC - Respiratory Exam Respiratory Exam: Clear to Ausculation Bilateral, NORMAL BREATHING PATTERN - Cardiovascular Exam Cardiovascular Exam: +S1, +S2 - GI/Abdominal Exam GI & Abdominal Exam: Soft, Normal Bowel Sounds. absent: Tenderness - Neurological Exam Neurological Exam: Alert, Awake, Oriented x3 Assessment and Plan - Assessment and Plan (Free Text) Assessment: Chest pain Uncontrolled HTN Hepatitis C Stomach ulcers CAD s/p stents Hypothyroidism Plan: Patient had a short run of SVT early this morning. She also complains of chest pain on and off. She is to have a stress test this morning. She also says that she had a bowel movement yesterday. She saw blood in the stool. Dr. Woodard, GI, evaluated her yesterday. continue Protonix, and Carafate for stomach ulcers. Hemoglobin is stable at 14.8.
--- NOTE | 2017-07-17 08:14 | HP ---
HISTORY OF PRESENT ILLNESS: The patient is seen in the emergency room. This is a 72-year-old white female. The patient was in the endoscopy room being prepared for endoscopy by Dr. Woodard. The patient's blood pressure suddenly increased, with the systolic pressure over 200 and diastolic pressure of 100. The patient also complained of some discomfort in the left side of the forehead and some flushing of the left side of the face as well as chest discomfort. Dr. Woodard had the patient transferred to the emergency room for further care and the endoscopic procedure was canceled. The patient has no other complaints except that she is very uncomfortable and apprehensive because of the whole episode. PAST MEDICAL HISTORY: Significant that she has been treated for hypertension for many years. She has history of hypothyroidism. The patient has history of osteoarthritis, severe with neuromuscular pain. The patient also gets treatment from neurology for neuromuscular disorder. Diagnosis is not clear. The patient also has past history of hepatitis C infection, and she is being evaluated for possible medical treatment for hepatitis C. She has recent history of difficulty swallowing and gastritis, reflux esophagitis. The patient also has had past history of gastrointestinal bleeding. She has history of coronary artery disease with acute NV in the past. The patient has history of insomnia. As of the patient's evaluation in the emergency room, the patient does not have a DNR order. ALLERGIES: THE PATIENT IS NOT ALLERGIC TO MEDICATION EXCEPTING ACETAMINOPHEN. PHYSICAL EXAMINATION: GENERAL: The patient is lying in bed, appears to be relatively comfortable, but complaints of some discomfort in chest and left side of the forehead. VITAL SIGNS: The patient's blood pressure is monitored by automatic device. The pulse is 72, her blood pressure is 189/96 at the moment. The patient's temperature is 97.6, respirations are 16, O2 sat 98% on room air. HEENT: The patient's head is normocephalic. NECK: The thyroid is clinically not enlarged. Carotid pulses are present. The patient's JVP is flat. HEART: NSR. LUNGS: Trachea is central. Breath sounds are vesicular. No adventitious sounds are heard bilaterally. ABDOMEN: Soft. There is no tenderness. Liver and spleen not palpable. Clinically, the patient has no evidence of ascites. The patient's hernial orifice is intact. CENTRAL NERVOUS SYSTEM: The patient is conscious, rational, and oriented. The cranial nerves II through XII are within normal range. The patient's sense of smell is normal. The patient has no difficulty in hearing. The sensory and motor functions on clinical examination seem to be okay, but the patient has difficulty in walking and pain due to walking has been a chronic complaint for several months. The patient's cerebral functions are within normal limits. LABORATORY DATA: The patient's blood work done in the hospital, the hemoglobin 14.4, the white count is 7500, her granulocyte count is 83.9. Chemistry: The patient's magnesium is 1.2 which is low. Her liver enzymes are normal. The patient has active liver disease from hepatitis C. The patient's sodium is 144, BUN and creatinine are within normal range. The patient's chest x-ray is clear. The patient's EKG shows ST-T wave changes consistent with coronary artery disease. The patient's CAT scan of the head did not show any abnormality. The patient also had evaluation by the on site manager in the emergency room, and the patient will be admitted for further evaluation and treatment for accelerated hypertension. Currently, the patient is being treated with aggressive measures. The patient was given labetalol and Apresoline. Her medication list consist of Ambien for sleep, the patient takes 5 mg at night. The patient is on Apresoline 10 mg intermittent dose. The patient is on sucralfate for gastritis, losartan 50 mg daily, metoprolol 50 mg daily, magnesium oxide, gabapentin 300 mg t.i.d., pantoprazole 40 mg once a day, Synthroid 75 mcg daily, tramadol 50 mg t.i.d. for neuromuscular pain, and aspirin 325 mg daily. The patient's blood pressure will be controlled by frequent examination and monitoring and medications will be administered as needed in the meantime. So overall prognosis is guarded. Condition is stable clinically at this time. We will follow up. Brigitte Burgos MD MTDD
[2017-07-17 08:22] LABS: TROPONIN I 0.29 ng/mL
[2017-07-17] MEDS: Magnesium Oxide 400 mg Tab UD PO SCH ×2 (09:58→18:05)
[2017-07-17] MEDS: Pantoprazole 40 mg EC Tab PO SCH (09:59)
[2017-07-17] MEDS ORDERED: Midazolam 2 MG/2 ML VIAL ONE ×2 (10:08→12:58)
[2017-07-17] MEDS ORDERED: Nitroglycerin 50mg in D5W 50 MG/250 ML BOTTLE IV ONE (10:09)
[2017-07-17] MEDS ORDERED: Lidocaine 2% Inj (20ml) ONE ×2 (10:09→13:16)
[2017-07-17] MEDS ORDERED: Iodixanol 320 MG/ML 200 ML BOTTLE IV ONE (10:09)
--- NOTE | 2017-07-17 12:37 | CP.PCM.PN ---
<Amarilys Olson - Last Filed: 07/17/17 12:29> Subjective - Date & Time of Evaluation Date of Evaluation: 07/17/17 Time of Evaluation: 09:45 - Subjective Subjective: Seen and examined at the bedside earlier this morning, the patient had SVT this a.m. and complains of intermittent chest pressure. The patient is also reported to have elevated troponins this morning, patient is planning to go to terrazzo laborer. Objective - Vital Signs/Intake and Output Vital Signs (last 24 hours): Temp Pulse Resp BP Pulse Ox 98.1 F 110 H 19 118/65 96 07/17/17 06:00 07/17/17 10:00 07/17/17 06:00 07/17/17 06:00 07/17/17 06:00 Intake and Output: 07/17/17 07/17/17 06:59 18:59 Intake Total 300 300 Output Total 3 3 Balance 297 297 - Medications Medications: Current Medications Acetaminophen/Butalbital/Caffeine (Fioricet) 1 tab PO Q4H PRN PRN Reason: Headache Last Admin: 07/15/17 17:55 Dose: 1 tab Gabapentin (Neurontin) 300 mg PO TID [facility] PRN Reason: Protocol Last Admin: 07/17/17 09:59 Dose: Not Given Hydralazine HCl (Apresoline) 10 mg PO QID PRN PRN Reason: for sb>170 Last Admin: 07/15/17 22:05 Dose: 10 mg Hydrochlorothiazide (Microzide) 12.5 mg PO DAILY [facility] Last Admin: 07/17/17 09:59 Dose: Not Given Levothyroxine Sodium (Synthroid) 75 mcg PO ACB [facility] Last Admin: 07/17/17 07:57 Dose: 75 mcg Losartan Potassium (Cozaar) 100 mg PO DAILY [facility] Last Admin: 07/17/17 09:58 Dose: Not Given Magnesium Oxide (Mag-Ox) 400 mg PO BID [facility] Last Admin: 07/17/17 09:58 Dose: Not Given Metoprolol Tartrate (Lopressor) 50 mg PO BID [facility] Last Admin: 07/17/17 09:58 Dose: Not Given Ondansetron HCl (Zofran Inj) 4 mg IVP Q4H PRN PRN Reason: Nausea/Vomiting Last Admin: 07/16/17 19:04 Dose: 4 mg Pantoprazole Sodium (Protonix Ec Tab) 40 mg PO DAILY [facility] Last Admin: 07/17/17 09:59 Dose: Not Given Sucralfate (Carafate Tab) 1 gm PO BID [facility] Last Admin: 07/17/17 09:58 Dose: Not Given Tramadol HCl (Ultram) 50 mg PO TID [facility] Last Admin: 07/17/17 09:59 Dose: Not Given Zolpidem Tartrate (Ambien) 5 mg PO HS PRN PRN Reason: Insomnia Last Admin: 07/16/17 22:55 Dose: 5 mg - Labs Labs: 07/17/17 06:00 07/17/17 06:00 PT 11.2 Seconds (9.9-11.8) 07/14/17 14:50 INR 1.04 (0.93-1.08) 07/14/17 14:50 APTT 23.6 Seconds (23.7-30.8) L 07/14/17 14:50 - Constitutional Appears: No Acute Distress - Head Exam Head Exam: NORMOCEPHALIC - Eye Exam Eye Exam: Normal appearance. absent: Scleral icterus - ENT Exam ENT Exam: Mucous Membranes Moist - Neck Exam Neck Exam: Normal Inspection - Respiratory Exam Respiratory Exam: NORMAL BREATHING PATTERN. absent: Respiratory Distress - Cardiovascular Exam Cardiovascular Exam: +S1, +S2 - GI/Abdominal Exam GI & Abdominal Exam: Soft, Normal Bowel Sounds. absent: Guarding, Tenderness, Organomegaly, Rebound - Extremities Exam Extremities Exam: Normal Capillary Refill. absent: Calf Tenderness, Pedal Edema - Neurological Exam Neurological Exam: Alert, Awake, Oriented x3 - Skin Skin Exam: Dry, Warm Assessment and Plan - Assessment and Plan (Free Text) Assessment: Assessment: 72-year-old patient with history of peptic ulcer disease and weight loss found to have elevated blood pressure and atypical chest pain, not patient with episodes of SVT and elevated troponin Status post constipation, found to have blood per rectum, no further rectal bleeding. History of hepatitis C with cirrhosis Hyperthyroidism Plan: For cardiac catheter today, Dr. Woodard spoke to Dr. Fuller regarding stent options in this patient who will need GI eval in the near future. Continue PPI given dose of Plavix this am Patient is on Carafate Endoscopy went optimal As per cardiology Seen and discussed with Dr. Woodard. <Rebecca Woodard V - Last Filed: 07/17/17 18:12> Objective - Vital Signs/Intake and Output Vital Signs (last 24 hours): Temp Pulse Resp BP Pulse Ox 98.4 F 98 H 18 129/61 96 07/17/17 16:55 07/17/17 16:55 07/17/17 16:55 07/17/17 16:55 07/17/17 06:00 Intake and Output: 07/17/17 07/17/17 06:59 18:59 Intake Total 300 300 Output Total 3 3 Balance 297 297 - Medications Medications: Current Medications Acetaminophen/Butalbital/Caffeine (Fioricet) 1 tab PO Q4H PRN PRN Reason: Headache Last Admin: 07/15/17 17:55 Dose: 1 tab Aspirin (Ecotrin) 81 mg PO DAILY [facility] Clopidogrel Bisulfate (Plavix) 75 mg PO DAILY [facility] Gabapentin (Neurontin) 300 mg PO TID [facility] PRN Reason: Protocol Last Admin: 07/17/17 14:55 Dose: Not Given Hydralazine HCl (Apresoline) 10 mg PO QID PRN PRN Reason: for sb>170 Last Admin: 07/15/17 22:05 Dose: 10 mg Hydrochlorothiazide (Microzide) 12.5 mg PO DAILY [facility] Last Admin: 07/17/17 09:59 Dose: Not Given Levothyroxine Sodium (Synthroid) 75 mcg PO ACB [facility] Last Admin: 07/17/17 07:57 Dose: 75 mcg Losartan Potassium (Cozaar) 100 mg PO DAILY [facility] Last Admin: 07/17/17 09:58 Dose: Not Given Magnesium Oxide (Mag-Ox) 400 mg PO BID [facility] Last Admin: 07/17/17 09:58 Dose: Not Given Metoprolol Tartrate (Lopressor) 50 mg PO BID [facility] Last Admin: 07/17/17 09:58 Dose: Not Given Ondansetron HCl (Zofran Inj) 4 mg IVP Q4H PRN PRN Reason: Nausea/Vomiting Last Admin: 07/16/17 19:04 Dose: 4 mg Pantoprazole Sodium (Protonix Ec Tab) 40 mg PO DAILY [facility] Last Admin: 07/17/17 09:59 Dose: Not Given Sucralfate (Carafate Tab) 1 gm PO BID [facility] Last Admin: 07/17/17 09:58 Dose: Not Given Tramadol HCl (Ultram) 50 mg PO TID [facility] Last Admin: 07/17/17 18:00 Dose: Not Given Zolpidem Tartrate (Ambien) 5 mg PO HS PRN PRN Reason: Insomnia Last Admin: 07/16/17 22:55 Dose: 5 mg - Labs Labs: 07/17/17 16:35 07/17/17 16:35 PT 11.2 Seconds (9.9-11.8) 07/14/17 14:50 INR 1.04 (0.93-1.08) 07/14/17 14:50 APTT 23.6 Seconds (23.7-30.8) L 07/14/17 14:50 Attending/Attestation - Attestation I have personally seen and examined this patient.: Yes I have fully participated in the care of the patient.: Yes I have reviewed all pertinent clinical information, including history, physical exam and plan: Yes Notes (Text): This is an addendum to GI progress report dictated by Amarilys Olson APN.The patient was seen and examined earlier. Medical records, lab studies, imagings were reviewed. Last 24 hours events reviewed. Agreed with the above treatment plan as outlined in Amarilys Olson APN's notes the with the addition of the following Patient is scheduled for cardiac cath at the time of examination, discussed with the noodle maker. Abdomen was soft no tenderness did not have any further episodes of bleeding per rectum. Subsequently spoke with the noodle maker Dr Fuller again patient had non drug eluding stent in RCA. Patient will be on aspirin and Plavix with close follow-up of the hemoglobin and hematocrit GI workup to be deferred for 2 weeks. We would continue PPI and add Carafate liquid daily at bedtime 07/17/17 18:11
[2017-07-17] MEDS ORDERED: Iohexol 350mgl/ml 50 ML ONE (13:03)
[2017-07-17] MEDS ORDERED: Eptifibatide 20 mg/10mL Inj IVP ONE (13:03)
[2017-07-17] MEDS ORDERED: Sodium Chloride 0.9% 1,000 ML IV SCH (14:00)
--- NOTE | 2017-07-17 15:12 | CARD ---
APPROVED REPORT EKG Measurement Heart [id number] CT 138P45 [id number] <Conclusion> Sinus tachycardia Left ventricular hypertrophy with repolarization abnormality Possible Old.Inf.Wall NM.
--- NOTE | 2017-07-17 15:27 | CARD ---
APPROVED REPORT EKG Measurement Heart [id number] [place] 126P41 [id number] <Conclusion> Normal sinus rhythm Minimal voltage criteria for LVH, NoN Specific ST_T Changes.
--- NOTE | 2017-07-17 15:32 | CARD ---
APPROVED REPORT EXAM: Two-dimensional and M-mode echocardiogram with Doppler and color Doppler. INDICATION CP/LVFX 2D DIMENSIONS Left Atrium (2D)4.9 (1.6-4.0cm)IVSd1.3 (0.7-1.1cm) LVDd3.5 (3.9-5.9cm)PWd1.3 (0.7-1.1cm) LVDs2.4 (2.5-4.0cm)FS (%) 30.2 % LVEF (%)58.6 (>50%) M-Mode DIMENSIONS Aortic Root2.80 (2.2-3.7cm)Aortic Cusp Exc.1.50 (1.5-2.0cm) Aortic Valve AoV Peak Imrlzcfh304.0cm/Riddhi Peak GR.14mmHgLVOT Peak Qsxuvstd264.0cm/s LVOT VTI32.70cmAI P 1/2 Qoig305sm Mitral Valve MV E Owhxdemw71.5cm/sMV A Mvtbyrdz60.3cm/sE/A ratio0.8 TDI Lateral E' Peak V8.58cm/sMedial E' Peak V6.14cm/sE/Lateral E'9.1 E/Medial E'12.8 Pulmonary Valve PV Peak Ghqftrtv72.5cm/sPV Peak Grad.2mmHg Tricuspid Valve TR Peak Kchrlozg043an/sRAP ZLNMFAKK21vgOiFK Peak Gr.26mmHg AYBO34elRg LEFT VENTRICLE The left ventricle is normal size. There is mild to moderate concentric left ventricular hypertrophy. The left ventricular function is normal.EF-55-60% There is normal LV segmental wall motion. Transmitral Doppler flow pattern is Grade III-reversible restrictive diastolic dysfunction. No left ventricle thrombus noted on this study. There is no ventricular septal defect visualized. There is no left ventricular aneurysm. There is no mass noted in the left ventricle. RIGHT VENTRICLE The right ventricle is normal size. There is normal right ventricular wall thickness. The right ventricular systolic function is normal. ATRIA The left atrium is moderately dilated. The right atrium size is normal. The atrial septum is aneurysmal, but No PFo by colr flow. AORTIC VALVE The aortic valve is thickened but opens well. The aortic valve is mildly to moderately sclerotic. There is mild aortic regurgitation. There is no aortic valvular stenosis. MITRAL VALVE The mitral valve is thickened but opens well. Mitral regurgitation is mild. There is no mitral valve stenosis. There is no evidence of mitral valve prolapse. TRICUSPID VALVE The tricuspid valve leaflets are thickened , but open well. There is mild tricuspid regurgitation.RVSp-36 mmof hg. There is no tricuspid valve stenosis. There is no tricuspid valve prolapse or vegetation. PULMONIC VALVE The pulmonary valve is normal in structure. There is no pulmonic valvular regurgitation. There is no pulmonic valvular stenosis. GREAT VESSELS The aortic root is normal in size. The ascending aorta is normal in size. The pulmonary artery is normal. The IVC is normal in size and collapses >50% with inspiration. PERICARDIAL EFFUSION There is no pleural effusion. There is no pericardial effusion. <Conclusion> The left ventricle is normal size. There is mild to moderate concentric left ventricular hypertrophy. The left ventricular function is normal.EF-55-60% The left ventricle is normal size. There is mild to moderate concentric left ventricular hypertrophy. The left ventricular function is normal.EF-55-60% There is mild aortic regurgitation. Mitral regurgitation is mild. There is mild tricuspid regurgitation.RVSp-36 mmof hg. The IVC is normal in size and collapses >50% with inspiration. There is no pericardial effusion.
--- NOTE | 2017-07-17 16:11 | CARD ---
APPROVED REPORT Procedure(s) performed: Left Heart Catheterization PTCA with Stenting of Mid RCA with BMS HISTORY The patient is a 72 year-old female with a history of : previous MA (> 7 days), previous diagnostic cath, tobacco history() : The patient is a former smoker , previous PCI (The PCI date was 10/01/2013), hypertension , dyslipidemia , Admitted from Endoscopy suit with uncontrolled HTN later on developed chest pain as well, Troponin remained neative over the weekend and was scheduld for stress test this morning, but early this morning pt had a run of SVT with ST T changes and later on troponin becoes positive 0.38,( ACS, Unstable Angina and NSTEMI). So stress test cancelled and russel for cardiac cath. INDICATION The indication(s) include : unstable angina , non-STEMI . CASE TECHNIQUE The patient was brought urgently to the Cardiac Catheterization Laboratory in a fasting state and was prepped and draped in a sterile manner. The left wrist was infiltrated with 2% Lidocaine subcutaneous anesthesia. A 6 Fr Glidesheath (Radial) sheath was inserted into the Hope sheath was placed without difficulty. Coronary angiography was performed using coronary diagnostic catheters. The left coronary system was accessed and visualized with a Diagnostic ,5 Fr JL 4 catheter. The right coronary system was accessed and visualized with a 5 Fr JR 4 catheter. The left ventricle was accessed and visualized with a 5 Fr Pigtail 145 (Angled) catheter. Left ventricular/Aortic Valve gradient assessed on pullback. Left ventriculogram was performed in ALLEN projection. Closure device was deployed with a 6 Fr Tr band without any complications. The patient tolerated the procedure well and there were no complications associated with the procedure. Cath done from Left radial artery, but when Guider was taken for PTCa of RCA ,Left Radial and Brachial artery went into Spasm, Intra arterial nitrglycerine 200 veronica were given three times, Spasm resolved significantly but not completely resolved ,so for PTCA RFA access was obtained and 6 Fr and post procedure closed with Angio-Seal. Vessel Analysis The patient's coronary anatomy is right dominant. The left main coronary artery is a medium size vessel with diffuse calcification noted throughout this vessel and without significant stenosis. The left main bifurcates to the left anterior descending and circumflex. The left anterior descending artery is a medium size vessel with diffuse calcification noted throughout this vessel and without significant stenosis. There is a 50% stenosis in the mid segment. The first diagonal branch is a small size vessel with diffuse calcification noted throughout this vessel and without significant stenosis. The circumflex artery is a medium size vessel with diffuse calcification noted throughout this vessel and without significant stenosis. The first obtuse marginal branch is a small size vessel with diffuse calcification noted throughout this vessel and without significant stenosis. The right coronary artery is a large size vessel with diffuse calcification noted throughout this vessel and with significant stenosis. There is a 90% stenosis in the proximal to mid segment with Hazyness.. patent stent noted in Mid segment. The right posterior descending artery is a large size vessel with diffuse calcification noted throughout this vessel and without significant stenosis. The right posterolateral branch is a medium size vessel with diffuse calcification noted throughout this vessel and without significant stenosis. Left Ventricle The left ventricle is Normal in size with normal contractility. There was no cardiomyopathy. The left ventricular ejection fraction is estimated to be 65%. The left ventricular end diastolic pressure is 15 mmHg. There was no gradient across the aortic valve upon pullback. PCI Technique Lesion Anticoagulation was achieved with Heparin. Percutaneous coronary intervention was performed on the proximal to mid right coronary artery. The lesion stenosis prior to intervention was 90% with LIANG 2 flow. A 6 Fr JR 3.5 Guide Catheter was used to engage the ostium. A 0.014 x 182 cm Luge Interventional Guidewire was used to cross the lesion. BALLOON DILATION A Balloon catheter 2.5 x 10 mm Sprinter RX was inserted and inflated up to 8.00atm for 19seconds. STENT DEPLOYMENT A bare metal stent 3.0 x 12 mm Vision BMS was inserted and inflated up to 10.00atm for 30seconds. Final angiography reveals 0 % stenosis with LIANG 3 flow. Conclusion One vessel Critical Disease in proximal to Mid RCA 90% stenosis with Hazyness, thought to be culprit for ACS, Patent stent in Mid RCA Moderate Disease in Mid LAD Preserved Lv Fx. Ef-65%, Edp-15 mmof Hg. Sucessful PTCA with BMS in RCA, ( BMS was used b/c pt has thrombocytopenia, Hep C, Hx of Wt loss, needs to R/o GI tumour and needs sooner than latter Gi W/U ) Recommendations Aggressive Medical TherapyCardiac Risk Reduction Program ASA and Plavix mandatory for Two weeks anf if possible four weeks, then Dc plavix and continue GI W/u CC; DRs. Pablo/ Dick/ Dontrell De La Rosa
--- NOTE | 2017-07-17 16:48 | PN ---
DATE: 07/17/2017 REASON FOR CONSULTATION AND FOLLOWUP: SVT, non-ST segment myocardial infarction, and positive troponin. SUBJECTIVE: The patient denies any chest pain, but last night has palpitations. OBJECTIVE: GENERAL: Lying flat in the bed. VITAL SIGNS: As follows; temperature afebrile, heart rate 90, and blood pressure 118/65. HEENT: PERRLA intact. NECK: Supple. No carotid bruit or thyromegaly. CHEST: Clear to auscultation. HEART: S1 and S2 regular. ABDOMEN: Soft. EXTREMITIES: Clubbing and cyanosis negative. LABORATORY DATA: WBC 4.9, hemoglobin 14.9, hematocrit 44.8, and platelet count 112. Chemistry showed sodium 139, potassium 3.0, chloride 94, carbon dioxide 38, anion gap of 11, BUN 15, and creatinine 0.6. Troponin 0.29. First is 0.02, repeat is 0.03 and 0.29. IMPRESSION: A 72-year-old female with past medical history significant for coronary artery disease, status post percutaneous transluminal coronary angioplasty in 2012 with one vessel critical disease involving right coronary artery with a percutaneous transluminal coronary angioplasty done of right coronary artery. Repeat catheterization on 07/03/2014 showed nonobstructive coronary artery disease. catheterization again dated was 07/03/2014 because of abnormal stress test that shows patent stent in right coronary artery, admitted with colonoscopy and endoscopy because of having abdominal pain and history of weight loss. While the patient was in gastrointestinal suite, has uncontrolled hypertension, chest pain, and was sent to the ER. Initially, free troponin was negative and the patient was scheduled for a stress test today,but last night, the patient's SVT and troponin was stress test was canceled, the patient was scheduled for cardiac cath and discussed with the patient. The patient had episode of chest pain and unstable angina. RECOMMENDATIONS: We will load with 300 Plavix and aspirin. Further recommendation after cardiac catheterization. We will try to avoid drug-coated stent if needed because the patient needs endoscopy as having abdominal pain, history of GI bleed questionable as well as history of weight loss. Further recommendation after cardiac catheterization. We will follow with you. Thank you Dr. Burgos for providing me the opportunity in taking care of Sakina Mckeon. Christy Fuller MD [facility] # [id number]
[2017-07-17 16:53] LABS: BASO # 0.01 K/mm3 (0.0-2.0); BASO % 0.2 % (0.0-3.0); EOS % 0.4 % (1.5-5.0); GRAN # 2.92 (1.4-6.5); GRAN % 51.6 % (50.0-68.0); HEMATOCRIT 43.4 % (36.0-48.0); LYMPH % 34.5 % (22.0-35.0); MEAN CELL VOLUME 95.2 fl (80.0-105.0); MEAN CORPUSCULAR HEMOGLOBIN 31.4 pg (25.0-35.0); MEAN CORPUSCULAR HGB CONC 32.9 g/dl (31.0-37.0); MEAN PLATELET VOLUME 12.1 fl (7.0-11.0); MONO # 0.8 (0.1-0.6); MONO % 13.3 % (1.0-6.0); RED CELL DISTRIBUTION WIDTH 13.4 % (11.5-14.5); WHITE BLOOD COUNT 5.7 10^3/ul (4.5-11.0)
[2017-07-17 16:54] LABS: BLOOD UREA NITROGEN 14 mg/dL (7-21); CALCIUM 8.2 mg/dL (8.4-10.5); CARBON DIOXIDE 35 mmol/L (21-33); CHLORIDE 98 mmol/L (98-107); GFR AFRICAN-AMERICAN > 60; GLUCOSE,RANDOM 81 mg/dL (70-110); POTASSIUM 3.8 mmol/L (3.6-5.0); SODIUM 140 mmol/L (132-148)
[2017-07-18] MEDS: Apap-Butalbital-Caffeine 325-50-40mg Tab PO PRN (06:45)
[2017-07-18] MEDS: Levothyroxine 75 MCG TAB PO SCH (07:40)
[2017-07-18 07:48] LABS: BASO # 0.02 K/mm3 (0.0-2.0); BASO % 0.3 % (0.0-3.0); EOS % 0.3 % (1.5-5.0); GRAN # 4.75 (1.4-6.5); HEMATOCRIT 43.2 % (36.0-48.0); LYMPH # 1.8 (1.2-3.4); MEAN CELL VOLUME 95.8 fl (80.0-105.0); MEAN CORPUSCULAR HGB CONC 32.4 g/dl (31.0-37.0); MEAN PLATELET VOLUME 11.8 fl (7.0-11.0); MONO # 0.7 (0.1-0.6); MONO % 9.4 % (1.0-6.0); RED CELL DISTRIBUTION WIDTH 13.4 % (11.5-14.5); WHITE BLOOD COUNT 7.3 10^3/ul (4.5-11.0)
[2017-07-18 07:55] LABS: ALB/GLOB RATIO 1.2 (1.1-1.8); ALKALINE PHOSPHATASE 45 U/L (38-126); ALT/SGPT 58 U/L (7-56); AST/SGOT 56 U/L (14-36); BLOOD UREA NITROGEN 14 mg/dL (7-21); CALCIUM 8.5 mg/dL (8.4-10.5); CARBON DIOXIDE 36 mmol/L (21-33); CHLORIDE 96 mmol/L (95-110); GFR AFRICAN-AMERICAN > 60; GLUCOSE,RANDOM 76 mg/dL (70-110); MAGNESIUM 1.9 mg/dL (1.7-2.2); PHOSPHOROUS 4.1 mg/dL (2.5-4.5); POTASSIUM 3.7 mmol/L (3.6-5.0); SODIUM 140 mmol/L (132-148); TOTAL PROTEIN 6.5 g/dL (5.8-8.3)
--- NOTE | 2017-07-18 08:13 | CP.PCM.PN ---
Subjective - Date & Time of Evaluation Date of Evaluation: 07/18/17 Time of Evaluation: 07:45 - Subjective Subjective: Patient is seen this morning in room 272 bed 1. She is complaining of headache and nausea. She received Fioricet for the headache and zofran for nausea. She says she did not receive any food yesterday. Objective - Vital Signs/Intake and Output Vital Signs (last 24 hours): Temp Pulse Resp BP Pulse Ox 98.4 F 78 18 137/59 L 97 07/18/17 06:00 07/18/17 06:00 07/18/17 06:00 07/18/17 06:00 07/18/17 06:00 Intake and Output: 07/18/17 07/18/17 06:59 18:59 Intake Total 740 Balance 740 - Medications Medications: Current Medications Acetaminophen/Butalbital/Caffeine (Fioricet) 1 tab PO Q4H PRN PRN Reason: Headache Last Admin: 07/18/17 06:45 Dose: 1 tab Aspirin (Ecotrin) 81 mg PO DAILY [facility] Clopidogrel Bisulfate (Plavix) 75 mg PO DAILY [facility] Gabapentin (Neurontin) 300 mg PO TID [facility] PRN Reason: Protocol Last Admin: 07/17/17 18:06 Dose: 300 mg Hydralazine HCl (Apresoline) 10 mg PO QID PRN PRN Reason: for sb>170 Last Admin: 07/15/17 22:05 Dose: 10 mg Hydrochlorothiazide (Microzide) 12.5 mg PO DAILY [facility] Last Admin: 07/17/17 09:59 Dose: Not Given Levothyroxine Sodium (Synthroid) 75 mcg PO ACB [facility] Last Admin: 07/18/17 07:40 Dose: 75 mcg Losartan Potassium (Cozaar) 100 mg PO DAILY [facility] Last Admin: 07/17/17 09:58 Dose: Not Given Magnesium Oxide (Mag-Ox) 400 mg PO BID [facility] Last Admin: 07/17/17 18:05 Dose: 400 mg Metoprolol Tartrate (Lopressor) 50 mg PO BID [facility] Last Admin: 07/17/17 18:06 Dose: 50 mg Ondansetron HCl (Zofran Inj) 4 mg IVP Q4H PRN PRN Reason: Nausea/Vomiting Last Admin: 07/18/17 07:40 Dose: 4 mg Pantoprazole Sodium (Protonix Ec Tab) 40 mg PO DAILY [facility] Last Admin: 07/17/17 09:59 Dose: Not Given Sucralfate (Carafate Tab) 1 gm PO BID [facility] Last Admin: 07/17/17 18:06 Dose: 1 gm Tramadol HCl (Ultram) 50 mg PO TID [facility] Last Admin: 07/17/17 18:07 Dose: 50 mg Zolpidem Tartrate (Ambien) 5 mg PO HS PRN PRN Reason: Insomnia Last Admin: 07/17/17 22:08 Dose: 5 mg - Labs Labs: 07/18/17 07:33 07/18/17 07:33 PT 11.2 Seconds (9.9-11.8) 07/14/17 14:50 INR 1.04 (0.93-1.08) 07/14/17 14:50 APTT 23.6 Seconds (23.7-30.8) L 07/14/17 14:50 - Constitutional Appears: No Acute Distress - Head Exam Head Exam: ATRAUMATIC, NORMOCEPHALIC - Respiratory Exam Respiratory Exam: Clear to Ausculation Bilateral, NORMAL BREATHING PATTERN - Cardiovascular Exam Cardiovascular Exam: REGULAR RHYTHM, +S1, +S2 - GI/Abdominal Exam GI & Abdominal Exam: Soft, Tenderness, Normal Bowel Sounds - Neurological Exam Neurological Exam: Alert, Awake, Oriented x3 Assessment and Plan - Assessment and Plan (Free Text) Assessment: Unstable angina/NSTEMI s/p cardiac cath with angioplasty of RCA Hep C H/O stomach ulcers GI Bleeding? HTN Hypothyroidism Plan: Patient underwent cardiac cath yesterday and found to have occlusion of right coronary artery. Bare metal stent was placed as patient is pending GI workup for possible GI bleed. We will give the patient a heart healthy diet this morning and monitor her for nausea. If patient is able to tolerate the food, then possible discharge this afternoon.
[2017-07-18] MEDS: Magnesium Oxide 400 mg Tab UD PO SCH ×2 (09:03→18:21)
[2017-07-18] MEDS: Pantoprazole 40 mg EC Tab PO SCH (09:04)
[2017-07-18] MEDS ORDERED: Potassium Chloride 20 mEq ER Tab PO ONE (09:31)
--- NOTE | 2017-07-18 10:14 | PQF AMI ---
This form is a permanent part of the medical record Dr. Pablo, Chart reflects patient had SVT with chest pain. Troponin elevated slightly after initially negative. Please clarify/specify if patient had NSTEMI, was it ruled out? This will code differently than unstable angina as noted in your progress notes of 07/18/17. Clarification of your documentation is requested to better reflect the severity of illness and intensity of treatment of your patient. Indicators present [] Diagnosis of HI without specification of time frame (within 28 days of admission of greater than 28 days prior to admission) [] Diagnosis of subsequent HI (time frame of previous HI within 28 days of admission or greater than 28 days of admission) [] Diagnosis of HI w/o specified site [] EKG positive for changes (i.e.; ST elevation, non-ST elevation, Q-wave changes, etc.) [x] Elevated Troponins [] Elevated Cardiac Enzymes [x] Cardiac consult documentation of [x] Chest pain/ACS/Unstable Angina [] Echo findings of [] Other: [] Location in the medical record that reflects the above clinical findings:[] Other Treatment Provided:[cardiac cath with stenting of right coronary artery PHYSICIAN'S RESPONSE Based on your medical judgment of the clinical indicators outlined above, are you treating this patient for a known or suspected: [x ] NSTEMI [ ] STEMI Site: [ ] [ ] ACS/Unstable Angina [ ] Angina :[ ] [ ] Other, please indicate [ ]___ If Unable to Determine, please check the box, sign and date Present On Admission (POA) Indicator: [ ] Present at the time of admission [ x] Not present at the time of admission [ ] Clinically Undetermined * If you have any questions please call:[ ] * Thank you, [ ]Melanie Quezada [facility]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 The fact that a question is asked does not imply that any particular answer is desired or expected. Thank you for your clarification on this documentation. ARMANDO
--- NOTE | 2017-07-18 11:56 | PN ---
DATE: 07/18/2017 REASON FOR CONSULTATION: Followup [id number] myocardial infarction, acute coronary syndrome, unstable angina, SVT, status post cardiac catheterization and PTCA of right coronary artery with bare metal stent on 07/17/2017. SUBJECTIVE: The patient denies any chest pain, denies any shortness of breath, and denies any palpitation. She feels better. OBJECTIVE/PHYSICAL EXAMINATION: GENERAL: Sitting at the bedside. Awaiting some breakfast. Not in apparent distress. VITAL SIGNS: As follows: Temperature is afebrile, heart rate is 84, and blood pressure is 108/46. HEENT: PERRLA intact. NECK: Supple. No carotid bruit or thyromegaly. CHEST: Clear to auscultation. HEART: S1 and S2 regular. ABDOMEN: Soft. EXTREMITIES: Clubbing and cyanosis negative. LABORATORY DATA: Blood workup as follows: WBC of 7.3, hemoglobin of 14, hematocrit of 43.2, and platelet count of 121. Chemistry shows sodium of 140, potassium of 3.7, chloride of 96, carbon dioxide of 36, anion gap of 12, BUN of 14, and creatinine of 0.5. Total protein of 6.5, albumin of 3.5 and albumin globulin ratio of 1.2. Magnesium of 1.4 and phosphorus of 4.1. IMPRESSION: Acute coronary syndrome, unstable angina, supraventricular tachycardia secondary to ischemia possibly uncontrolled hypertension, coronary artery disease, status post stent in right coronary artery in 2012. Yesterday, the patient underwent cardiac catheterization and stent with bare metal stent into proximal right coronary artery, which showed heaviness also, bare metal was placed because the patient has a history of weight loss suspicious of gastrointestinal malignancy and being worked up as the patient was admitted initially for endoscopy and she was transferred to the Emergency Room because of the chest pain and uncontrolled hypertension, which is now completely resolved. Discussed with Dr. Burgos and Dr. Woodard yesterday. The patient needs two weeks definitely of aspirin, Plavix and dual platelet therapy because of the bare metal stent. After this, the patient can come off and have the colonoscopy and endoscopy in third week from now. So, the patient should be on aspirin, Plavix again till 08/02/2017 of this month and first week of August, the patient can have endoscopy and colonoscopy while off Plavix. For better control of blood pressure, continue losartan 100 mg daily and aspirin. Continue metoprolol 50 b.i.d. and hydrochlorothiazide 12.5 mg started. Continue Plavix 75 mg daily. Prescriptions given for Plavix 75 mg for one month supply with the patient needs only two weeks and if she is not going for endoscopy soon or colonoscopy, suggest to continue plan for 4 weeks, but weeks as mentioned above. Thank you Dr. Burgos for providing me the opportunity in taking care of the patient, Sakina Mckeon. We will supplement potassium with 40 K-Dur. Christy Fuller MD
--- NOTE | 2017-07-18 12:36 | CP.PCM.PN ---
<Amarilys Olson - Last Filed: 07/18/17 12:35> Subjective - Date & Time of Evaluation Date of Evaluation: 07/18/17 Time of Evaluation: 09:35 - Subjective Subjective: S&E at bedside, chart reviewed. S/P cardiac cath yesterday, s/p PTCA w stent mid RCA w/ BMS. Patient no SOB or chest discomfort. She did report some nausea after her pills. Ate breakfast. Denies any overt GI bleed. Objective - Vital Signs/Intake and Output Vital Signs (last 24 hours): Temp Pulse Resp BP Pulse Ox 98.4 F 84 18 108/46 L 97 07/18/17 06:00 07/18/17 10:00 07/18/17 06:00 07/18/17 09:03 07/18/17 06:00 Intake and Output: 07/18/17 07/18/17 06:59 18:59 Intake Total 740 Balance 740 - Medications Medications: Current Medications Acetaminophen/Butalbital/Caffeine (Fioricet) 1 tab PO Q4H PRN PRN Reason: Headache Last Admin: 07/18/17 06:45 Dose: 1 tab Aspirin (Ecotrin) 81 mg PO DAILY [facility] Last Admin: 07/18/17 09:03 Dose: 81 mg Clopidogrel Bisulfate (Plavix) 75 mg PO DAILY [facility] Last Admin: 07/18/17 09:04 Dose: 75 mg Gabapentin (Neurontin) 300 mg PO TID [facility] PRN Reason: Protocol Last Admin: 07/18/17 09:04 Dose: 300 mg Hydralazine HCl (Apresoline) 10 mg PO QID PRN PRN Reason: for sb>170 Last Admin: 07/15/17 22:05 Dose: 10 mg Hydrochlorothiazide (Microzide) 12.5 mg PO DAILY [facility] Last Admin: 07/18/17 09:03 Dose: 12.5 mg Levothyroxine Sodium (Synthroid) 75 mcg PO ACB [facility] Last Admin: 07/18/17 07:40 Dose: 75 mcg Losartan Potassium (Cozaar) 100 mg PO DAILY [facility] Last Admin: 07/18/17 09:02 Dose: 100 mg Magnesium Oxide (Mag-Ox) 400 mg PO BID [facility] Last Admin: 07/18/17 09:03 Dose: 400 mg Metoprolol Tartrate (Lopressor) 50 mg PO BID [facility] Last Admin: 10/10/17 09:03 Dose: 50 mg Ondansetron HCl (Zofran Inj) 4 mg IVP Q4H PRN PRN Reason: Nausea/Vomiting Last Admin: 07/18/17 07:40 Dose: 4 mg Pantoprazole Sodium (Protonix Ec Tab) 40 mg PO DAILY [facility] Last Admin: 07/18/17 09:04 Dose: 40 mg Sucralfate (Carafate Tab) 1 gm PO BID [facility] Last Admin: 07/18/17 09:02 Dose: 1 gm Tramadol HCl (Ultram) 50 mg PO TID [facility] Last Admin: 07/18/17 09:05 Dose: Not Given Zolpidem Tartrate (Ambien) 5 mg PO HS PRN PRN Reason: Insomnia Last Admin: 07/17/17 22:08 Dose: 5 mg - Labs Labs: 07/18/17 07:33 07/18/17 07:33 PT 11.2 Seconds (9.9-11.8) 07/14/17 14:50 INR 1.04 (0.93-1.08) 07/14/17 14:50 APTT 23.6 Seconds (23.7-30.8) L 07/14/17 14:50 - Constitutional Appears: No Acute Distress - Head Exam Head Exam: NORMAL INSPECTION - Eye Exam Eye Exam: Normal appearance. absent: Scleral icterus - ENT Exam ENT Exam: Mucous Membranes Moist - Neck Exam Neck Exam: Normal Inspection - Respiratory Exam Respiratory Exam: NORMAL BREATHING PATTERN. absent: Respiratory Distress - Cardiovascular Exam Cardiovascular Exam: +S1, +S2 - GI/Abdominal Exam GI & Abdominal Exam: Soft, Normal Bowel Sounds. absent: Guarding, Tenderness, Rebound - Extremities Exam Extremities Exam: Normal Capillary Refill. absent: Calf Tenderness - Neurological Exam Neurological Exam: Alert, Awake, Oriented x3 - Skin Skin Exam: Dry, Warm Assessment and Plan - Assessment and Plan (Free Text) Assessment: Assessment: 72-year-old patient with history of peptic ulcer disease and weight loss found to have elevated blood pressure and atypical chest pain, patient with episodes of SVT and elevated troponin, s/p cardiac catheter with PTCA Status post constipation, found to have blood per rectum, no further rectal bleeding. History of hepatitis C with cirrhosis Hyperthyroidism Plan: Continue PPI on Carafate on aspirin and Plavix, cardiology recommend patient be on this for 2 weeks if possible for weeks then then DC for GI workup, appreciate cardiology recommendations. Endoscopy went optimal, status post cardiac catheterization, needs to be on aspirin and Plavix for 2-4 weeks Monitor H&H Seen and discussed with Dr. Woodard. <Rebecca Woodard V - Last Filed: 07/18/17 23:43> Objective - Vital Signs/Intake and Output Vital Signs (last 24 hours): Temp Pulse Resp BP Pulse Ox 98.3 F 90 20 116/73 97 07/18/17 12:00 07/18/17 18:21 07/18/17 12:00 07/18/17 18:21 07/18/17 06:00 Intake and Output: 07/18/17 07/19/17 18:59 06:59 Intake Total 360 Output Total 600 Balance -240 - Medications Medications: Current Medications Aspirin (Ecotrin) 81 mg PO DAILY [facility] Last Admin: 07/18/17 09:03 Dose: 81 mg Clopidogrel Bisulfate (Plavix) 75 mg PO DAILY [facility] Last Admin: 07/18/17 09:04 Dose: 75 mg Gabapentin (Neurontin) 300 mg PO TID [facility] PRN Reason: Protocol Last Admin: 07/18/17 18:21 Dose: 300 mg Hydralazine HCl (Apresoline) 10 mg PO QID PRN PRN Reason: for sb>170 Last Admin: 07/15/17 22:05 Dose: 10 mg Hydrochlorothiazide (Microzide) 12.5 mg PO DAILY [facility] Last Admin: 07/18/17 09:03 Dose: 12.5 mg Levothyroxine Sodium (Synthroid) 75 mcg PO ACB [facility] Last Admin: 07/18/17 07:40 Dose: 75 mcg Losartan Potassium (Cozaar) 100 mg PO DAILY [facility] Last Admin: 07/18/17 09:02 Dose: 100 mg Magnesium Oxide (Mag-Ox) 400 mg PO BID [facility] Last Admin: 07/18/17 18:21 Dose: 400 mg Metoprolol Tartrate (Lopressor) 50 mg PO BID [facility] Last Admin: 07/18/17 18:21 Dose: 50 mg Ondansetron HCl (Zofran Inj) 4 mg IVP Q4H PRN PRN Reason: Nausea/Vomiting Last Admin: 07/18/17 13:45 Dose: 4 mg Pantoprazole Sodium (Protonix Ec Tab) 40 mg PO DAILY [facility] Last Admin: 07/18/17 09:04 Dose: 40 mg Sucralfate (Carafate Tab) 1 gm PO BID [facility] Last Admin: 07/18/17 18:21 Dose: 1 gm Tramadol HCl (Ultram) 50 mg PO Q6 PRN PRN Reason: Pain, moderate (4-7) Last Admin: 07/18/17 20:56 Dose: 50 mg Zolpidem Tartrate (Ambien) 5 mg PO HS PRN PRN Reason: Insomnia Last Admin: 07/18/17 22:34 Dose: 5 mg - Labs Labs: 07/18/17 07:33 07/18/17 07:33 PT 11.2 Seconds (9.9-11.8) 07/14/17 14:50 INR 1.04 (0.93-1.08) 07/14/17 14:50 APTT 23.6 Seconds (23.7-30.8) L 07/14/17 14:50 Attending/Attestation - Attestation I have personally seen and examined this patient.: Yes I have fully participated in the care of the patient.: Yes I have reviewed all pertinent clinical information, including history, physical exam and plan: Yes Notes (Text): This is an addendum to GI progress report dictated by Amarilys Olson APN.The patient was seen and examined earlier. Medical records, lab studies, imagings were reviewed. Last 24 hours events reviewed. Agreed with the above treatment plan as outlined in Amarilys Olson APN's notes the with the addition of the following Abdomen soft no tenderness Follow-up of the hemoglobin hematocrit GI workup after 2 weeks 07/18/17 23:41
[2017-07-19 06:52] VITALS: O2SAT 100
--- NOTE | 2017-07-19 08:12 | CP.PCM.PN ---
Subjective - Date & Time of Evaluation Date of Evaluation: 07/19/17 Time of Evaluation: 07:45 - Subjective Subjective: Patient is seen this morning. She still complains of nausea with meals. She denies chest pain or shortness of breath. Objective - Vital Signs/Intake and Output Vital Signs (last 24 hours): Temp Pulse Resp BP Pulse Ox 97.6 F 98 H 19 137/63 100 07/19/17 06:00 07/19/17 06:00 07/19/17 06:00 07/19/17 06:00 07/19/17 06:00 Intake and Output: 07/19/17 07/19/17 06:59 18:59 Intake Total 0 Output Total 0 Balance 0 - Medications Medications: Current Medications Aspirin (Ecotrin) 81 mg PO DAILY [facility] Last Admin: 07/18/17 09:03 Dose: 81 mg Clopidogrel Bisulfate (Plavix) 75 mg PO DAILY [facility] Last Admin: 07/18/17 09:04 Dose: 75 mg Gabapentin (Neurontin) 300 mg PO TID [facility] PRN Reason: Protocol Last Admin: 07/18/17 18:21 Dose: 300 mg Hydralazine HCl (Apresoline) 10 mg PO QID PRN PRN Reason: for sb>170 Last Admin: 07/15/17 22:05 Dose: 10 mg Hydrochlorothiazide (Microzide) 12.5 mg PO DAILY [facility] Last Admin: 07/18/17 09:03 Dose: 12.5 mg Levothyroxine Sodium (Synthroid) 75 mcg PO ACB [facility] Last Admin: 07/18/17 07:40 Dose: 75 mcg Losartan Potassium (Cozaar) 100 mg PO DAILY [facility] Last Admin: 07/18/17 09:02 Dose: 100 mg Magnesium Oxide (Mag-Ox) 400 mg PO BID [facility] Last Admin: 07/18/17 18:21 Dose: 400 mg Metoprolol Tartrate (Lopressor) 50 mg PO BID [facility] Last Admin: 07/18/17 18:21 Dose: 50 mg Ondansetron HCl (Zofran Inj) 4 mg IVP Q4H PRN PRN Reason: Nausea/Vomiting Last Admin: 07/18/17 13:45 Dose: 4 mg Pantoprazole Sodium (Protonix Ec Tab) 40 mg PO DAILY [facility] Last Admin: 07/18/17 09:04 Dose: 40 mg Sucralfate (Carafate Tab) 1 gm PO BID [facility] Last Admin: 07/18/17 18:21 Dose: 1 gm Tramadol HCl (Ultram) 50 mg PO Q6 PRN PRN Reason: Pain, moderate (4-7) Last Admin: 07/19/17 06:45 Dose: 50 mg Zolpidem Tartrate (Ambien) 5 mg PO HS PRN PRN Reason: Insomnia Last Admin: 07/18/17 22:34 Dose: 5 mg - Labs Labs: 07/18/17 07:33 07/18/17 07:33 PT 11.2 Seconds (9.9-11.8) 07/14/17 14:50 INR 1.04 (0.93-1.08) 07/14/17 14:50 APTT 23.6 Seconds (23.7-30.8) L 07/14/17 14:50 - Constitutional Appears: No Acute Distress - Head Exam Head Exam: ATRAUMATIC, NORMOCEPHALIC - Respiratory Exam Respiratory Exam: Clear to Ausculation Bilateral, NORMAL BREATHING PATTERN - Cardiovascular Exam Cardiovascular Exam: +S1, +S2 - GI/Abdominal Exam GI & Abdominal Exam: Soft, Normal Bowel Sounds. absent: Tenderness - Neurological Exam Neurological Exam: Alert, Awake, Oriented x3 Assessment and Plan - Assessment and Plan (Free Text) Assessment: NSTEMI/ Unstable angina s/p cardiac cath with bare metal stent HTN Hypothyroidism Nausea H/O stomach ulcers CAD Plan: Patient underwent cardiac cath for unstable angina. Bare metal stent was placed in right coronary artery. She will be on Plavix for at least 2 weeks. She complains of nausea. She will have GI workup in 2 weeks. Her blood pressure is now controlled. She will be discharged today with a prescription for Reglan before meals. She will followup in the office in 1 week.
[2017-07-19] MEDS: Levothyroxine 75 MCG TAB PO SCH (08:42)
[2017-07-19] MEDS: Magnesium Oxide 400 mg Tab UD PO SCH (09:24)
[2017-07-19] MEDS: Pantoprazole 40 mg EC Tab PO SCH (09:25)
[2017-07-19] MEDS ORDERED: Potassium Chloride 20 mEq ER Tab PO STA (10:04)
--- NOTE | 2017-07-19 11:08 | CARD ---
APPROVED REPORT EKG Measurement Heart [id number] <Conclusion> Sinus rhythm with short NE Minimal voltage criteria for LVH, may be normal variant Nonspecific T wave abnormality Somatic Tremors.
[2017-07-19 12:22] VITALS: BP 126/77; PULSE 67; RESP 18; TEMP 98.4
--- NOTE | 2017-07-19 12:37 | CP.PCM.PN ---
Subjective - Date & Time of Evaluation Date of Evaluation: 07/19/17 Time of Evaluation: 09:45 - Subjective Subjective: Seen and examined at the bedside earlier this morning, complains of nausea and headache, no vomiting, denies shortness of breath or chest pain. No further reports of overt GI bleed. Objective - Vital Signs/Intake and Output Vital Signs (last 24 hours): Temp Pulse Resp BP Pulse Ox 98.4 F 67 18 126/77 100 07/19/17 12:00 07/19/17 12:00 07/19/17 12:00 07/19/17 12:00 07/19/17 06:00 Intake and Output: 07/19/17 07/19/17 06:59 18:59 Intake Total 0 Output Total 0 Balance 0 - Medications Medications: Current Medications Aspirin (Ecotrin) 81 mg PO DAILY [facility] Last Admin: 07/19/17 09:23 Dose: 81 mg Atorvastatin Calcium (Lipitor) 20 mg PO HS [facility] Clopidogrel Bisulfate (Plavix) 75 mg PO DAILY [facility] Last Admin: 07/19/17 09:25 Dose: 75 mg Gabapentin (Neurontin) 300 mg PO TID [facility] PRN Reason: Protocol Last Admin: 07/19/17 09:23 Dose: 300 mg Hydralazine HCl (Apresoline) 10 mg PO QID PRN PRN Reason: for sb>170 Last Admin: 07/15/17 22:05 Dose: 10 mg Hydrochlorothiazide (Microzide) 12.5 mg PO DAILY [facility] Last Admin: 07/19/17 09:24 Dose: 12.5 mg Levothyroxine Sodium (Synthroid) 75 mcg PO ACB [facility] Last Admin: 07/19/17 08:42 Dose: 75 mcg Losartan Potassium (Cozaar) 100 mg PO DAILY [facility] Last Admin: 07/19/17 09:24 Dose: 100 mg Magnesium Oxide (Mag-Ox) 400 mg PO BID [facility] Last Admin: 07/19/17 09:24 Dose: 400 mg Metoprolol Tartrate (Lopressor) 50 mg PO BID [facility] Last Admin: 07/19/17 09:25 Dose: 50 mg Ondansetron HCl (Zofran Inj) 4 mg IVP Q4H PRN PRN Reason: Nausea/Vomiting Last Admin: 07/18/17 13:45 Dose: 4 mg Pantoprazole Sodium (Protonix Ec Tab) 40 mg PO DAILY [facility] Last Admin: 07/19/17 09:25 Dose: 40 mg Sucralfate (Carafate Tab) 1 gm PO BID [facility] Last Admin: 07/19/17 09:23 Dose: 1 gm Tramadol HCl (Ultram) 50 mg PO Q6 PRN PRN Reason: Pain, moderate (4-7) Last Admin: 07/19/17 06:45 Dose: 50 mg Zolpidem Tartrate (Ambien) 5 mg PO HS PRN PRN Reason: Insomnia Last Admin: 07/18/17 22:34 Dose: 5 mg - Labs Labs: 07/18/17 07:33 07/18/17 07:33 PT 11.2 Seconds (9.9-11.8) 07/14/17 14:50 INR 1.04 (0.93-1.08) 07/14/17 14:50 APTT 23.6 Seconds (23.7-30.8) L 07/14/17 14:50 - Constitutional Appears: No Acute Distress - Head Exam Head Exam: NORMOCEPHALIC - Eye Exam Eye Exam: Normal appearance. absent: Scleral icterus - ENT Exam ENT Exam: Mucous Membranes Moist - Neck Exam Neck Exam: Normal Inspection - Respiratory Exam Respiratory Exam: NORMAL BREATHING PATTERN. absent: Respiratory Distress - Cardiovascular Exam Cardiovascular Exam: +S1, +S2 - GI/Abdominal Exam GI & Abdominal Exam: Soft, Normal Bowel Sounds. absent: Guarding, Tenderness, Rebound - Neurological Exam Neurological Exam: Alert, Awake, Oriented x3 - Skin Skin Exam: Dry, Warm Assessment and Plan - Assessment and Plan (Free Text) Assessment: Assessment: 72-year-old patient with history of peptic ulcer disease and weight loss found to have elevated blood pressure and atypical chest pain, patient with episodes of SVT and elevated troponin, s/p cardiac catheter with PTCA Status post constipation, found to have blood per rectum, no further rectal bleeding. History of hepatitis C with cirrhosis Hyperthyroidism Plan: Continue PPI on Carafate on aspirin and Plavix, cardiology recommend patient be on this for 2 weeks if possible for 4weeks then then DC for GI workup, appreciate cardiology recommendations. Elective outpatient Endoscopy, status post cardiac catheterization, needs to be on aspirin and Plavix for 2-4 weeks Monitor H&H, discuss w/patient and dfamily at bedside. Seen and discussed with Dr. Woodard.
--- NOTE | 2017-07-20 08:35 | PN ---
REASON FOR CONSULTATION: Unstable angina, [id number] myocardial infarction, status post PTCA of RCA, SVT pre PTCA. SUBJECTIVE: The patient denies any chest pain, shortness of breath, any palpitation. OBJECTIVE: GENERAL: Sitting in the bed, comfortable, not in distress. VITAL SIGNS: Temperature afebrile, heart rate 97, blood pressure 108/ . LABORATORY DATA: Blood workup as follows; WBC 7.3, hemoglobin 14, hematocrit 43.2, and platelet count 121. Chemistry shows sodium 140, potassium 3.7, chloride 96, carbon dioxide 36, anion gap 12, BUN of 14, and creatinine 0.5. IMPRESSION: Acute coronary syndrome, unstable angina, [id number] myocardial infarction, supraventricular tachycardia, history of percutaneous transluminal coronary angioplasty, status post percutaneous transluminal coronary angioplasty of right coronary artery with heavy plaque with haziness in right coronary artery, bare-metal stents were deployed. RECOMMENDATIONS: Continue aspirin and Plavix mandatory for 2 weeks; after this, the patient can come off the Plavix and have the colonoscopy and GI workup done for the loss of weight, suspicious of malignancy. Discussed with Dr. Burgos, discussed with Dr. Woodard. Prescription given for Plavix. Thank you Dr. Woodard for providing us the opportunity in taking care of the patient. Christy Fuller MD
--- NOTE | 2017-07-24 05:39 | DS ---
HISTORY OF PRESENT ILLNESS: This a 72-year-old female with history of hypertension, hepatitis C, arthritis, hypothyroidism, coronary artery disease, neuromuscular disorder who was in the endoscopy room being prepared for endoscopy for recent complaints of difficulty swallowing and gastritis with reflux esophagitis. The patient's blood pressure suddenly increased to a systolic pressure of 200 and diastolic pressure of 100. She complained of discomfort in the left side of the forehead, flushing of the left side of the face as well as chest pressure. The patient denies shortness of breath or diaphoresis. She was given IV labetalol and hydralazine in the endoscopy suite her pressure would decrease and then increase again. The patient was then transferred to the Emergency Room and admitted to the telemetry floor. HOSPITAL COURSE: The patient was seen by Dr. Fuller, her Remodeler. Initially cardiac enzymes and troponin were negative. The patient's chest pain resolved as her blood pressure was decreasing. The patient was started on her losartan and metoprolol and given hydralazine as needed. The patient also complained of constipation. Once, the patient did have bowel movements, she complained of seeing blood in the stool. She was seen by Dr. Woodard, who was a Investigator Narcotics. The patient also began again having intermittent chest pressure and she was scheduled to have a stress test done; however, she also developed a run of SVT. Since she was having SVT as well as further complaints of chest pain, she was taken for cardiac catheterization, which showed occlusion on the right coronary artery and a bare metal stent was placed. The patient would need Plavix for at least 2 weeks. Therefore, her GI workup for the possible bleeding, difficulty swallowing and gastritis would be delayed for another 2 weeks. The patient's troponin also increased at this time. She was feeling better after the catheterization and she denied any complaints of pain. Her blood pressure was controlled, so she was discharged home in stable condition. She will follow up in one week. She was given prescription for Plavix and Reglan for nausea. She will have a GI workup done in 2 weeks. DISCHARGE DIAGNOSES: Non-ST elevation myocardial infarction, hypothyroidism, uncontrolled hypertension, coronary artery disease, hepatitis C, gastritis and reflux esophagitis. DISCHARGE MEDICATIONS: Carafate 1 g twice a day, Protonix 40 mg daily, Plavix 75 mg daily, Neurontin 300 mg three times a day, Lopressor 100 mg daily, Lipitor 20 mg at night, Synthroid 75 mcg daily, aspirin 81 mg daily, Cozaar 50 mg daily, Ambien 10 mg at night as needed for sleep, Reglan 5 mg three times a day before meals, Ultram 50 mg three times a day as needed for pain. Nadine Burgos MD
== END 2017-07-19 13:09 | disposition home or self-care (01) | DRG 249 ==
LOC: ED 14:07 → ERH 16:11 → 2RSO 18:09 → OBSVTOIN 07-15 08:50
PROVIDERS: ADMIT Internal Medicine; ATTEND Internal Medicine
PROC: 02703DZ Dilation of Coronary Artery, One Artery with Intraluminal Device, Percutaneous Approach (ICD-10-PCS; principal; 2017-07-17)
PROC: 3E033PZ Introduction of Platelet Inhibitor into Peripheral Vein, Percutaneous Approach (ICD-10-PCS; 2017-07-17)
PROC: 4A023N7 Measurement of Cardiac Sampling and Pressure, Left Heart, Percutaneous Approach (ICD-10-PCS; 2017-07-17)
PROC: B211YZZ Fluoroscopy of Multiple Coronary Arteries using Other Contrast (ICD-10-PCS; 2017-07-17)
PROC: B215YZZ Fluoroscopy of Left Heart using Other Contrast (ICD-10-PCS; 2017-07-17)
DX: I21.4 Non-ST elevation (NSTEMI) myocardial infarction (principal); I25.110 Atherosclerotic heart disease of native coronary artery with unstable angina pectoris; D69.6 Thrombocytopenia, unspecified; K74.60 Unspecified cirrhosis of liver; I47.1 Supraventricular tachycardia; I16.0 Hypertensive urgency; I10 Essential (primary) hypertension; K21.0 Gastro-esophageal reflux disease with esophagitis; G62.9 Polyneuropathy, unspecified; E78.5 Hyperlipidemia, unspecified; B18.2 Chronic viral hepatitis C; E03.9 Hypothyroidism, unspecified; K25.9 Gastric ulcer, unspecified as acute or chronic, without hemorrhage or perforation; K59.00 Constipation, unspecified; M19.90 Unspecified osteoarthritis, unspecified site; K29.70 Gastritis, unspecified, without bleeding; R51 Headache; I25.2 Old myocardial infarction; Z53.8 Procedure and treatment not carried out for other reasons; Z79.899 Other long term (current) drug therapy; Z95.5 Presence of coronary angioplasty implant and graft; Z87.891 Personal history of nicotine dependence

== ENCOUNTER → 2017-07-14 | Day surgery (SDC) | payer MEDICARE, BC ==
[2017-07-11 11:50] VITALS: BMI 24.7
[2017-07-14 10:04] VITALS: RESP 16; TEMP 97.6
[2017-07-14 11:04] LABS: GRAN # 6.64 (1.4-6.5); GRAN % 85.5 % (50.0-68.0); LYMPH # 0.7 (1.2-3.4); LYMPH % 8.6 % (22.0-35.0); MEAN CORPUSCULAR HEMOGLOBIN 31.3 pg (25.0-35.0); MEAN CORPUSCULAR HGB CONC 33.3 g/dl (31.0-37.0); MEAN PLATELET VOLUME 12.2 fl (7.0-11.0); MONO # 0.5 (0.1-0.6); MONO % 5.9 % (1.0-6.0); RED CELL DISTRIBUTION WIDTH 13.4 % (11.5-14.5); WHITE BLOOD COUNT 7.8 10^3/ul (4.5-11.0)
[2017-07-14 11:14] LABS: INR 1.04 (0.93-1.08)
[2017-07-14 12:59] VITALS: O2SAT 94
--- NOTE | 2017-07-14 13:19 | CP.PCM.PN ---
Subjective - Date & Time of Evaluation Date of Evaluation: 07/14/17 Time of Evaluation: 13:09 - Subjective Subjective: 72 y/o F with pmhx signficant for CAD s/p stents and hep C presenting for elective EGD. Upon arrival, elevated BP's patient attributed to nervousness. Ordered and administered 5mg hydralazine and 5mg labetalol IV and although BP's did decrease after approx. 30-45minutes. Patient started to complain of mild/ moderate headache. After extensive discussion with Dr. Woodard, patient and decision made to cancel procedure and have patient sent to the emergency department. Patient understood and denied chest pain or SOB. Objective - Vital Signs/Intake and Output Vital Signs (last 24 hours): Temp Pulse Resp BP Pulse Ox 97.6 F 75 16 167/92 H 94 L 07/14/17 10:04 07/14/17 12:52 07/14/17 12:52 07/14/17 13:03 07/14/17 12:52 - Labs Labs: 07/14/17 10:40 PT 11.2 Seconds (9.9-11.8) 07/14/17 10:40 INR 1.04 (0.93-1.08) 07/14/17 10:40 APTT 24.0 Seconds (23.7-30.8) 07/14/17 10:40
[2017-07-14 14:41] VITALS: BP 208/94; PULSE 70
--- NOTE | 2017-07-14 15:07 | PCM.RRT ---
<Nancy Chávez - Last Filed: 07/14/17 15:18> WOOD FURNITURE ASSEMBLER Nurse Assessment - Situation Date: 07/14/17 Time WOOD FURNITURE ASSEMBLER was called: 13:45 WOOD FURNITURE ASSEMBLER Responder Arrival Time: 13:47 WOOD FURNITURE ASSEMBLER Location:: Endoscopy WOOD FURNITURE ASSEMBLER Reason for Call: Chest Pain, Hypertension, O2 Saturation below 90% WOOD FURNITURE ASSEMBLER Called By: RN - IV IV Inserted during WOOD FURNITURE ASSEMBLER?: No - Respiratory Oxygen Delivery Method: Nasal Cannula @L/min Oxygen Flow Rate: 2 Received Nebulizer Treatments:: No Was the Patient Ventilated with Bag/Mask 100% O2?: No Secretions Suctioned?: No Was the Patient Intubated?: No Was the Patient Placed on a Ventilator?: No - Diagnostic Test Ordered EKG: Yes Chest X-Ray: No CT Scan: No CPR started during WOOD FURNITURE ASSEMBLER?: No - Vital Signs Vital Sign: Rapid Response Vital Sign Blood Pressure 238/106 Pulse Rate 75 Respiratory Rate 24 Oxygen Saturation 89 - Time WOOD FURNITURE ASSEMBLER Ended Time WOOD FURNITURE ASSEMBLER Ended: 14:10 - Vital Signs at end of WOOD FURNITURE ASSEMBLER Vital Signs at end of WOOD FURNITURE ASSEMBLER: Rapid Response End Vital Sign Blood Pressure 224/106 Pulse Rate 80 Respiratory Rate 21 O2 Sat by Pulse Oximetry 97 - Recommendations Notifications: Attending Physician, Family or Designated Caregiver I.Reason for WOOD FURNITURE ASSEMBLER - A) Acute Change in Patient: (Select all that apply): Staff member or family is worried about patient (chest pressure in the setting of hypertension.) Subjective: Patient is a 72 y/o with pmh of htn, and CAD s/p stents whom presented to same day surgery today for endoscopy, was found to be hypertensive, endoscopy was canceled by the Gi attending, and patient was told to go to the ED. As per patient's nurse, BP was 200s/100s, anesthesiologist gave patient hydralazine and labetalol with no improvement of the BP. En route to the ED, patient c/o chest pressure thus WOOD FURNITURE ASSEMBLER was called. Patient also c/o left sided headache and pressure in the left eye. Patient was saturating 89% on room air, which improved with 2 litters O2. Patient states the chest pain was substernal, non radiating, and feels tight. Patient admits to sob, denies palpitations, denies n /v/d. Stat EKG was obtained revealing NSR@77 BMP, Non specific ST/T wave changes, likely digitalis effect. Patient states she took her po losartan and Lopressor this morning prior to coming for egd. Patient states her normal day to day SBP runs in the 180s. - Neurological Status (Select all that apply): Alert - Respiratory Oxygen Delivery Method: Nasal Cannula @L/min Oxygen Flow Rate: 2 - Constitutional Appears: No Acute Distress, Chronically Ill - Head Head Exam: ATRAUMATIC, NORMAL INSPECTION, NORMOCEPHALIC - Eyes Eye Exam: EOMI, Normal appearance, PERRL. absent: Nystagmus - Respiratory Exam Respiratory Exam: Clear to Ausculation Bilateral, NORMAL BREATHING PATTERN. absent: Rhonchi, Wheezes, Respiratory Distress, Stridor - Cardiovascular Exam Cardiovascular Exam: REGULAR RHYTHM, +S1, +S2. absent: RRR, Murmur - GI/Abdominal Exam GI & Abdominal Exam: Soft, Normal Bowel Sounds. absent: Guarding, Rigid, Tenderness - Neurological Exam Neurological Exam: Awake, CN II-XII Intact, Oriented x3, Reflexes Normal. absent: Motor Sensory Deficit - Extremities Exam Extremities Exam: Full ROM, Normal Inspection. absent: Pedal Edema Plan - Assessment of Findings&Treatment Plan 72 y/o with h/o htn and CAD with stents presented for EGD and was found to have hypertensive urgency. WOOD FURNITURE ASSEMBLER is called for left sided chest pressure. - STAT EKG - S/P labetalol and hydralazine by anesthesia - Will tanker to ER, patient will need management of BP, cardiac enzymes and CT head. Patient seen, examined, Dr Ramos was at the bed side. <Manolo Ramos - Last Filed: 07/15/17 10:04> WOOD FURNITURE ASSEMBLER Nurse Assessment - Vital Signs Vital Sign: Rapid Response Vital Sign Blood Pressure 238/106 Pulse Rate 75 Respiratory Rate 24 Oxygen Saturation 89 - Vital Signs at end of WOOD FURNITURE ASSEMBLER Vital Signs at end of WOOD FURNITURE ASSEMBLER: Rapid Response End Vital Sign Blood Pressure 224/106 Pulse Rate 80 Respiratory Rate 21 O2 Sat by Pulse Oximetry 97 Attending/Attestation - Attestation I have personally seen and examined this patient.: Yes I have fully participated in the care of the patient.: Yes I have reviewed all pertinent clinical information, including history, physical exam and plan: Yes Notes (Text): 07/15/17 10:00 ATTENDING NOTE; Patient seen and examined with resident in endoscopy. Patient is a 72 year old with pmh of htn, and CAD s/p stents whom presented to same day surgery today for endoscopy, was found to be hypertensive, endoscopy was canceled. rapid response was called after patient complained of headache and chest discomfort. Patient looks anxious. Initial blood pressure was 200/100. IV hydralazine and labetalol given. Stat EKG showed no acute ST T changes. The patient was transferred to the ER for further evaluation and treatment. the patient will be evaluated by ER attending. case discussed with ER attending in detail. Cardiac enzymes/CAT scan of head ordered. patient's by the bedside. The patient will be followed by PMD Dr. Burgos. 07/15/17 10:04
--- NOTE | 2017-07-14 22:02 | CARD ---
APPROVED REPORT EKG Measurement Heart [id number] <Conclusion> Normal sinus rhythm Moderate voltage criteria for LVH, may be normal variant Nonspecific ST and T wave abnormality Abnormal ECG
== END | disposition short-term general hospital (02) ==
LOC: ENDO 09:27
PROVIDERS: ATTEND Internal Medicine Gastroenterology
DX: K25.9 Gastric ulcer, unspecified as acute or chronic, without hemorrhage or perforation (principal); I16.0 Hypertensive urgency; I25.10 Atherosclerotic heart disease of native coronary artery without angina pectoris; B19.20 Unspecified viral hepatitis C without hepatic coma; Z95.5 Presence of coronary angioplasty implant and graft; Z53.09 Procedure and treatment not carried out because of other contraindication

== ENCOUNTER 2017-09-08 08:22 | Day surgery (SDC) | payer MEDICARE, BC ==
[2017-08-30 16:18] VITALS: BMI 24.7
[2017-09-08] MEDS ORDERED: Sodium Chloride 0.9% 1,000 ML IV SCH (09:45)
[2017-09-08] MEDS ORDERED: Propofol 10 mg/ml Inj (20 ML) ONE (10:08)
[2017-09-08 10:59] VITALS: RESP 18; TEMP 98
[2017-09-08 11:42] VITALS: BP 156/86; PULSE 58; O2SAT 94
== END 2017-09-08 12:19 | disposition home or self-care (01) ==
LOC: ENDO 08:22
PROVIDERS: ATTEND Internal Medicine Gastroenterology
DX: K31.819 Angiodysplasia of stomach and duodenum without bleeding (principal); K29.50 Unspecified chronic gastritis without bleeding
CPT/HCPCS: 43239; 88305; 88342; J2001; J2704; J3010; J7040 ×2

== ENCOUNTER 2017-09-12 10:12 | Day surgery (SDC) | payer MEDICARE, BC ==
[2017-08-30 16:18] VITALS: BMI 24.7
[~2017-09-12 10:12] MED LIST: Sodium Chloride 0.9% 1,000 ML IV SCH
[2017-09-12 10:39] VITALS: RESP 27; TEMP 97.2
[2017-09-12] MEDS ORDERED: Propofol 10 mg/ml Inj (20 ML) ONE (11:00)
[2017-09-12 12:23] VITALS: BP 109/59; PULSE 67; O2SAT 96
== END 2017-09-12 13:46 | disposition home or self-care (01) ==
LOC: ENDO 10:12
PROVIDERS: ATTEND Internal Medicine Gastroenterology
DX: K62.1 Rectal polyp (principal); K57.30 Diverticulosis of large intestine without perforation or abscess without bleeding; K64.8 Other hemorrhoids; I25.10 Atherosclerotic heart disease of native coronary artery without angina pectoris; R63.4 Abnormal weight loss
CPT/HCPCS: 45380; 88305; J2704; J7040

== ENCOUNTER 2017-11-22 06:46 | Emergency (ER) | payer MEDICARE, BC ==
[2017-11-22 06:47] VITALS: BMI 24.7
--- NOTE | 2017-11-22 06:51 | ED PDOC ---
Arrival/HPI - General Time Seen by Provider: 11/22/17 06:47 Historian: EMS - History of Present Illness Narrative History of Present Illness (Text): 11/22/17 06:39 Sakina Mckeon is a 72 year old female, whose past medical history includes hypertension, hypothyroidisim, CAD, and NV, who presents to the ED brought in by BLS, CPR in progress, status post cardiac arrest today. As per EMS, stated patient was last seen normal at 02:00 today. Patient was found unresponsive this morning, not breathing by her who notified EMS. On arrival, CPR was initiated by EMS. Limited HPI and ROS secondary to cardiac arrest. Time/Duration: Prior to Arrival Symptom Course: Unchanged Severity Level: Severe Activities at Onset: Light, Sleeping Context: Home Past Medical History - Provider Review Nursing Documentation Reviewed: Yes - Infectious Disease Hx of Infectious Diseases: None - Cardiac Hx Pacemaker: No - Pulmonary Hx Respiratory Disorders: Yes (SMOKED CIGARETTES H/O 2 PPD QUIT) - Neurological Hx Paralysis: No - HEENT Hx HEENT Disorder: No (WEARS RX GLASSES) - Renal Hx Renal Disorder: No - Endocrine/Metabolic Hx Endocrine Disorders: Yes Hx Hypothyroidism: Yes - Hematological/Oncological Hx Blood Transfusions: Yes Hx Blood Transfusion Reaction: No - Integumentary Other/Comment: multiple bruising has healed pt stated "I don't take blood thinners anymore". - Musculoskeletal/Rheumatological Hx Musculoskeletal Disorders: Yes - Gastrointestinal Hx Gastroesophageal Reflux: Yes Other/Comment: hx bleeding ulcers, endo 02/2016 dx multiple gastric and duodenal ulcers esophagitis,portal gastropathy - Genitourinary/Gynecological Hx Genitourinary Disorders: No - Psychiatric Hx Emotional Abuse: No Hx Physical Abuse: No Hx Substance Use: No - Surgical History Hx Appendectomy: Yes Other/Comment: right carpal tunnel sx, right elbow sx for tennis elbow, b/l shoulder sx for rotator cuff, cervical spine sx with metal plate, denies sx to lower back - Anesthesia Hx Anesthesia Reactions: No Hx Malignant Hyperthermia: No - Suicidal Assessment Feels Threatened In Home Enviroment: No Family/Social History - Physician Review Nursing Documentation Reviewed: Yes Family/Social History: Unknown Family HX Smoking Status: Former Smoker Hx Alcohol Use: No Hx Substance Use: No Allergies/Home Meds Allergies/Adverse Reactions: Allergies acetaminophen [From Tylenol] Allergy (Intermediate, Verified 07/14/17 14:17) RASH Home Medications: Home Meds Medication Instructions Recorded Confirmed Metoprolol Tartrate [Lopressor] 100 mg PO DAILY 02/25/16 09/12/17 Losartan [Cozaar] 50 mg PO DAILY 03/31/17 09/12/17 Gabapentin [Neurontin] 300 mg PO TID 07/14/17 09/12/17 Zolpidem Tartrate [Ambien] 10 mg PO HS PRN 07/14/17 09/12/17 Levothyroxine [Synthroid] 0.075 mg PO DAILY 09/11/17 09/12/17 Review of Systems - Review of Systems Systems not reviewed;Unavailable: Other (cardiac arrest) Physical Exam Temperature: Afebrile Pulse: Pulseless Respiratory Rate: Apneic Mental Status: Positive for: Comatose - Systems Exam Head: Present: Atraumatic, Normocephalic Pupils: Present: Other (fixed/dilated) Respiratory/Chest: Present: Other (apneic) Cardiovascular: No: Regular Rate and Rhythm Neurological: Present: Other (no response to painful stimuli) Skin: Present: Pale, Other (positive lividity present) Medical Decision Making ED Course and Treatment: 11/22/17 06:39 Impression: 72 year old female brought in by EMS status post cardiac arrest with CPR in progress. Prior Visits: Notes and results from previous visits were reviewed. 11/22/17 06:44 On arrival to ED, pt was placed on assistant professor of communication, noted to be asystolic. Pt was noted to be pale, cyanotic with mottling, and lividity noted. Given that pt clinically was noted to be in cardiac arrest for an obvious extended period of time with no possibility of resuscitation, CPR was halted, and pt was pronounced at 06:44. 11/22/17 07:01 Family present in ED, counseled regarding resuscitation efforts. Family verbalizes understanding. 11/22/17 07:07 PMD was notified/medical screener to be notified. - Scribe Statement The provider has reviewed the documentation as recorded by the Scribe Candace Shah All medical record entries made by the Scribe were at my direction and personally dictated by me. I have reviewed the chart and agree that the record accurately reflects my personal performance of the history, physical exam, medical decision making, and the department course for this patient. I have also personally directed, reviewed, and agree with the discharge instructions and disposition. Disposition/Present on Arrival - Present on Arrival Any Indicators Present on Arrival: No History of DVT/PE: No History of Uncontrolled Diabetes: No Urinary Catheter: No History of Decub. Ulcer: No History Surgical Site Infection Following: None - Disposition Have Diagnosis and Disposition been Completed?: Yes Diagnosis: Cardiac arrest Disposition: WITH WITHOUT AUTOPSY Disposition Time: 06:44 Condition:
== END 2017-11-22 09:49 ==
LOC: ED 06:46
DX: I46.9 Cardiac arrest, cause unspecified (principal); I25.10 Atherosclerotic heart disease of native coronary artery without angina pectoris; I25.2 Old myocardial infarction; I10 Essential (primary) hypertension; Z87.891 Personal history of nicotine dependence